=== PATIENT | female | born 1990 | race Caucasian/White ===

== ENCOUNTER → 2017-08-11 | Outpatient (CLI) | payer OTHER ==
[~2017-08-11] MED LIST: ALBU90OI INH; CEPH500 PO; CHOL10002 PO; CLIN300 PO; Cleocin HCl300 MG PO; EPIN.3I IM; FLUO10 PO; IBUP800 PO; NAPR550 PO; Norco 5-325 Ta1 EACH PO; OLAN5 PO; Oxycodone-Apap1 EAC3 PO; PERIDEX15 ML MM; PROZAC20 MG PO; Pyridium100 MG PO; Ultram50 MG PO; Zofran Odt4 MG SL; Zofran4 MG PO
[2017-08-11 19:26] LABS: Specimen Source CERVIX
[2017-08-12 10:02] LABS: Candida species (DNA Probe) Negative (NEGATIVE); G. vaginalis (DNA Probe) Negative (NEGATIVE); T. vaginalis (DNA Probe) Negative (NEGATIVE)
[2017-08-13 01:25] LABS: Source Cervix
== END | disposition home or self-care (01) ==
LOC: LAB EV 19:24
PROVIDERS: Physician Assistant
DX: N76.0 Acute vaginitis (principal)
CPT/HCPCS: 87480; 87491; 87510; 87591; 87660

== ENCOUNTER 2017-10-09 20:57 | Emergency (ER) | payer OTHER ==
[~2017-10-09] VITALS: Ht 172.7 cm; Wt 90.7 kg
[~2017-10-09 20:57] MED LIST changes: -CEPH500 PO; -CHOL10002 PO; -CLIN300 PO; -Cleocin HCl300 MG PO; -FLUO10 PO; -IBUP800 PO; -NAPR550 PO; -Norco 5-325 Ta1 EACH PO; -Oxycodone-Apap1 EAC3 PO; -PERIDEX15 ML MM; -Pyridium100 MG PO; -Ultram50 MG PO; -Zofran Odt4 MG SL; -Zofran4 MG PO
[2017-10-09] MEDS ORDERED: FLUO10 PO (21:04)
[2017-10-09] MEDS ORDERED: OLAN5 PO (21:04)
[2017-10-09 21:20] LABS: Source, Urine Clean Catch
[2017-10-09 21:25] LABS: BASOPHILS ABSOLUTE AUTO 0.08 K/mm3 (0.00-0.23); BASOPHILS PERCENT AUTO 1 % (0-2); EOSINOPHILS ABSOLUTE AUTO 0.41 K/mm3 (0.00-0.68); EOSINOPHILS PERCENT AUTO 4 % (0-6); Hematocrit 39.5 % (33.0-51.0); Hemoglobin 13.6 g/dL (11.5-16.0); IMMATURE GRAN PERCENT AUTO 1 % (0-1); LYMPHOCYTES ABSOLUTE AUTO 3.68 K/mm3 (0.84-5.20); LYMPHOCYTES PERCENT AUTO 31 % (21-46); MONOCYTES ABSOLUTE AUTO 0.88 K/mm3 (0.16-1.47); MONOCYTES PERCENT AUTO 8 % (4-13); Mean Corpuscular HGB 31.7 pg (26.0-34.0); Mean Corpuscular HGB Conc 34.4 g/dL (31.5-36.5); Mean Corpuscular Volume 92 fL (80-100); NEUTROPHILS ABSOLUTE AUTO 6.58 K/mm3 (1.96-9.15); NEUTROPHILS PERCENT AUTO 56 % (41-73); Platelet Count 278 K/mm3 (150-400); RDW Coefficient Variation 11.9 % (11.7-14.2); RDW Standard Deviation 40.8 fL (35.1-46.3); Red Blood Cell Count 4.29 M/mm3 (3.80-5.20); White Blood Cell Count 11.73 K/mm3 (4.00-11.30)
[2017-10-09 21:26] LABS: Appearance, Urine Hazy (Clear); Bilirubin, Urine Neg (Neg); Blood, Urine Neg (Neg); Color, Urine Yellow (P-Yellow); Glucose Qualitative, Urine Neg (Neg); Ketones, Urine Neg (Neg); Leukocyte Esterase, Urine Neg (Neg); Nitrite, Urine Neg (Neg); Protein, Urine Neg (Neg); Urobilinogen, Urine NORM (Normal)
[2017-10-09 21:32] LABS: Squamous Epithelial Cells Mod /hpf (Few)
[2017-10-09 21:33] LABS: Bacteria Mod /hpf; Red Blood Cells, Urine 0-2 /hpf (0-2)
[2017-10-09 21:43] LABS: Alanine Aminotransfer (ALT/SGP 40 U/L (12-78); Albumin, Blood 3.8 g/dL (3.4-5.0); Alk Phos 108 U/L (50-136); Anion Gap 7 mmol/L (6-16); Aspartate Aminotrans (AST/SGOT 26 U/L (12-37); Bilirubin, Total 0.3 mg/dL (0.1-1.0); Blood Urea Nitrogen 18 mg/dL (8-24); Bun/Creatinine Ratio 26.5 (12.0-20.0); CO2, Blood 25 mmol/L (21-32); Calcium, Blood 9.3 mg/dL (8.5-10.1); Chloride, Blood 108 mmol/L (98-108); Creatinine, Blood 0.68 mg/dL (0.40-1.00); Glomerular Filtration Rate >60 (60-); Glucose, Blood 105 mg/dL (70-99); Sodium, Blood 140 mmol/L (136-145); Total Protein, Blood 7.8 g/dL (6.4-8.2)
[2017-10-10] MEDS ORDERED: Zofran Odt4 MG SL (00:16)
== END 2017-10-10 00:40 | disposition home or self-care (01) ==
LOC: ER 20:57
PROVIDERS: Emergency Medicine
DX: R10.84 Generalized abdominal pain (principal); T38.5X5A Adverse effect of other estrogens and progestogens, initial encounter; J45.909 Unspecified asthma, uncomplicated; F32.9 Major depressive disorder, single episode, unspecified; F41.9 Anxiety disorder, unspecified; F17.210 Nicotine dependence, cigarettes, uncomplicated; Z91.030 Bee allergy status; Z88.0 Allergy status to penicillin; Z88.8 Allergy status to other drugs, medicaments and biological substances; Z91.040 Latex allergy status; Z88.5 Allergy status to narcotic agent; Z79.899 Other long term (current) drug therapy
CPT/HCPCS: 36415; 76705; 80053; 81001; 81025; 83690; 85025; 87086; 96374; 96375; 99284; J1885; J2405

== ENCOUNTER 2018-01-27 19:14 | Emergency (ER) | payer OTHER ==
[~2018-01-27] VITALS: Ht 167.6 cm; Wt 97.5 kg
[~2018-01-27 19:14] MED LIST changes: +CHOL10002 PO; +FLUO10 PO; +Oxycodone-Apap1 EAC3 PO; +Zofran Odt4 MG SL
[2018-01-27 19:31] LABS: Source, Urine Clean Catch
[2018-01-27 19:38] LABS: Appearance, Urine Clear (Clear); Bilirubin, Urine Neg (Neg); Blood, Urine Neg (Neg); Color, Urine Yellow (P-Yellow); Glucose Qualitative, Urine Neg (Neg); Ketones, Urine Neg (Neg); Leukocyte Esterase, Urine 1+ (Neg); Nitrite, Urine Neg (Neg); Protein, Urine Neg (Neg); Urobilinogen, Urine NORM (Normal)
[2018-01-27 19:44] LABS: Bacteria Many /hpf; Red Blood Cells, Urine 0-2 /hpf (0-2); Squamous Epithelial Cells Mod /hpf (Few)
[2018-01-27] MEDS ORDERED: Pyridium100 MG PO (20:09)
[2018-01-27] MEDS ORDERED: CEPH500 PO (20:09)
== END 2018-01-27 20:22 | disposition home or self-care (01) ==
LOC: ER 19:14
PROVIDERS: Physician Assistant
DX: N39.0 Urinary tract infection, site not specified (principal); Z91.030 Bee allergy status; Z88.0 Allergy status to penicillin; Z91.040 Latex allergy status; Z88.5 Allergy status to narcotic agent; Z79.899 Other long term (current) drug therapy; J45.909 Unspecified asthma, uncomplicated; F32.9 Major depressive disorder, single episode, unspecified; F41.9 Anxiety disorder, unspecified; F25.9 Schizoaffective disorder, unspecified; F17.210 Nicotine dependence, cigarettes, uncomplicated
CPT/HCPCS: 81001; 87086; 99283

== ENCOUNTER 2018-02-25 15:32 | Emergency (ER) | payer OTHER ==
[~2018-02-25] VITALS: Ht 167.6 cm; Wt 104.3 kg
[~2018-02-25 15:32] MED LIST changes: +CEPH500 PO; +Pyridium100 MG PO
[2018-02-25 15:55] LABS: Source, Urine Voided
[2018-02-25 16:23] LABS: BASOPHILS ABSOLUTE AUTO 0.06 K/mm3 (0.00-0.23); BASOPHILS PERCENT AUTO 1 % (0-2); EOSINOPHILS ABSOLUTE AUTO 0.41 K/mm3 (0.00-0.68); EOSINOPHILS PERCENT AUTO 4 % (0-6); Hematocrit 41.4 % (33.0-51.0); Hemoglobin 14.1 g/dL (11.5-16.0); IMMATURE GRAN ABSOLUTE AUTO 0.11 K/mm3 (0.00-0.10); IMMATURE GRAN PERCENT AUTO 1 % (0-1); LYMPHOCYTES ABSOLUTE AUTO 3.15 K/mm3 (0.84-5.20); LYMPHOCYTES PERCENT AUTO 28 % (21-46); MONOCYTES ABSOLUTE AUTO 0.74 K/mm3 (0.16-1.47); MONOCYTES PERCENT AUTO 7 % (4-13); Mean Corpuscular HGB 31.4 pg (26.0-34.0); Mean Corpuscular HGB Conc 34.1 g/dL (31.5-36.5); Mean Corpuscular Volume 92 fL (80-100); Mean Platelet Volume 10.6 fL (9.1-12.4); NEUTROPHILS PERCENT AUTO 60 % (41-73); Platelet Count 266 K/mm3 (150-400); RDW Coefficient Variation 12.6 % (11.7-14.2); RDW Standard Deviation 42.8 fL (35.1-46.3); Red Blood Cell Count 4.49 M/mm3 (3.80-5.20); White Blood Cell Count 11.27 K/mm3 (4.00-11.30)
[2018-02-25 16:25] LABS: Appearance, Urine Hazy (Clear); Bilirubin, Urine Neg (Neg); Blood, Urine 3+ (Neg); Color, Urine Yellow (P-Yellow); Glucose Qualitative, Urine Neg (Neg); Ketones, Urine Neg (Neg); Leukocyte Esterase, Urine 1+ (Neg); Nitrite, Urine Neg (Neg); Protein, Urine Neg (Neg); Urobilinogen, Urine NORM (Normal)
[2018-02-25 16:47] LABS: Alanine Aminotransfer (ALT/SGP 39 U/L (12-78); Albumin, Blood 3.8 g/dL (3.4-5.0); Albumin/Globulin Ratio 0.9 (0.8-1.8); Alk Phos 151 U/L (50-136); Anion Gap 9 mmol/L (6-16); Aspartate Aminotrans (AST/SGOT 29 U/L (12-37); Bilirubin, Total 0.2 mg/dL (0.1-1.0); Blood Urea Nitrogen 10 mg/dL (8-24); Bun/Creatinine Ratio 13.4 (12.0-20.0); CO2, Blood 23 mmol/L (21-32); Calcium, Blood 8.9 mg/dL (8.5-10.1); Chloride, Blood 106 mmol/L (98-108); Creatinine, Blood 0.74 mg/dL (0.40-1.00); Globulin, Blood 4.1 g/dL (2.2-4.0); Glomerular Filtration Rate >60 (60-); Glucose, Blood 79 mg/dL (70-99); Potassium, Blood 4.1 mmol/L (3.5-5.5); Sodium, Blood 138 mmol/L (136-145); Total Protein, Blood 7.9 g/dL (6.4-8.2)
[2018-02-25 16:47] LABS: Bacteria Many /hpf; Squamous Epithelial Cells Mod /hpf (Few)
[2018-02-25] MEDS ORDERED: NAPR550 PO (17:43)
[2018-02-25] MEDS ORDERED: Norco 5-325 Ta1 EACH PO (17:43)
[2018-02-26] MEDS ORDERED: Zofran4 MG PO (21:53)
== END 2018-02-25 17:57 | disposition home or self-care (01) ==
LOC: ER 15:32
PROVIDERS: Emergency Medicine
DX: N80.9 Endometriosis, unspecified (principal); F17.210 Nicotine dependence, cigarettes, uncomplicated
CPT/HCPCS: 36415; 76830; 76856; 80053; 81001; 81025; 83690; 85025; 87086; 96361; 96374; 96375; 99284-25; J1885; J2405; J3010; J7030

== ENCOUNTER 2018-02-26 19:06 | Emergency (ER) | payer OTHER ==
[~2018-02-26] VITALS: Ht 167.6 cm; Wt 104.3 kg
[~2018-02-26 19:06] MED LIST changes: +NAPR550 PO; +Norco 5-325 Ta1 EACH PO
[2018-02-26 20:16] LABS: BASOPHILS ABSOLUTE AUTO 0.05 K/mm3 (0.00-0.23); BASOPHILS PERCENT AUTO 0 % (0-2); EOSINOPHILS ABSOLUTE AUTO 0.32 K/mm3 (0.00-0.68); EOSINOPHILS PERCENT AUTO 3 % (0-6); Hematocrit 41.7 % (33.0-51.0); IMMATURE GRAN ABSOLUTE AUTO 0.07 K/mm3 (0.00-0.10); IMMATURE GRAN PERCENT AUTO 1 % (0-1); LYMPHOCYTES ABSOLUTE AUTO 3.13 K/mm3 (0.84-5.20); LYMPHOCYTES PERCENT AUTO 28 % (21-46); MONOCYTES ABSOLUTE AUTO 0.72 K/mm3 (0.16-1.47); MONOCYTES PERCENT AUTO 6 % (4-13); Mean Corpuscular HGB 30.6 pg (26.0-34.0); Mean Corpuscular HGB Conc 33.6 g/dL (31.5-36.5); Mean Corpuscular Volume 91 fL (80-100); Mean Platelet Volume 10.9 fL (9.1-12.4); NEUTROPHILS ABSOLUTE AUTO 6.96 K/mm3 (1.96-9.15); NEUTROPHILS PERCENT AUTO 62 % (41-73); Platelet Count 280 K/mm3 (150-400); RDW Coefficient Variation 12.5 % (11.7-14.2); RDW Standard Deviation 41.2 fL (35.1-46.3); Red Blood Cell Count 4.58 M/mm3 (3.80-5.20); White Blood Cell Count 11.25 K/mm3 (4.00-11.30)
[2018-02-26 20:39] LABS: Alanine Aminotransfer (ALT/SGP 42 U/L (12-78); Albumin, Blood 3.7 g/dL (3.4-5.0); Alk Phos 148 U/L (50-136); Anion Gap 8 mmol/L (6-16); Aspartate Aminotrans (AST/SGOT 33 U/L (12-37); Bilirubin, Total 0.2 mg/dL (0.1-1.0); Blood Urea Nitrogen 14 mg/dL (8-24); Bun/Creatinine Ratio 17.7 (12.0-20.0); CO2, Blood 23 mmol/L (21-32); Calcium, Blood 8.6 mg/dL (8.5-10.1); Chloride, Blood 109 mmol/L (98-108); Creatinine, Blood 0.79 mg/dL (0.40-1.00); Globulin, Blood 3.7 g/dL (2.2-4.0); Glomerular Filtration Rate >60 (60-); Glucose, Blood 93 mg/dL (70-99); Potassium, Blood 4.1 mmol/L (3.5-5.5); Sodium, Blood 140 mmol/L (136-145); Total Protein, Blood 7.4 g/dL (6.4-8.2)
[2018-02-26] MEDS ORDERED: Zofran4 MG PO (21:53)
== END 2018-02-26 22:10 | disposition home or self-care (01) ==
LOC: ER 19:06
PROVIDERS: Emergency Medicine
DX: N80.9 Endometriosis, unspecified (principal); J45.909 Unspecified asthma, uncomplicated; F32.9 Major depressive disorder, single episode, unspecified; F41.9 Anxiety disorder, unspecified; F20.9 Schizophrenia, unspecified; F17.210 Nicotine dependence, cigarettes, uncomplicated; Z91.030 Bee allergy status; Z88.0 Allergy status to penicillin; Z88.8 Allergy status to other drugs, medicaments and biological substances; Z91.040 Latex allergy status; Z79.899 Other long term (current) drug therapy
CPT/HCPCS: 36415; 74177; 80053; 81025; 83690; 85025; 96374; 96375; 96376; 99284-25; J2405; J3010; Q9967

== ENCOUNTER → 2018-06-24 | Outpatient (CLI) | payer OTHER ==
[~2018-06-24] MED LIST changes: +CLIN300 PO; +Cleocin HCl300 MG PO; +DOCU100 PO; +GAVILAX17 GM PO; +IBUP800 PO; +MELO7.5 PO; +PERIDEX15 ML MM; +PROM25 PO; +Percocet 5-3251 EACH PO; +SIME80CH PO; +Ultram50 MG PO; +Zofran4 MG PO
[2018-06-24 16:11] LABS: BASOPHILS ABSOLUTE AUTO 0.06 K/mm3 (0.00-0.23); BASOPHILS PERCENT AUTO 1 % (0-2); EOSINOPHILS ABSOLUTE AUTO 0.24 K/mm3 (0.00-0.68); EOSINOPHILS PERCENT AUTO 2 % (0-6); Hematocrit 41.4 % (33.0-51.0); Hemoglobin 14.3 g/dL (11.5-16.0); IMMATURE GRAN ABSOLUTE AUTO 0.08 K/mm3 (0.00-0.10); IMMATURE GRAN PERCENT AUTO 1 % (0-1); LYMPHOCYTES ABSOLUTE AUTO 2.85 K/mm3 (0.84-5.20); LYMPHOCYTES PERCENT AUTO 27 % (21-46); MONOCYTES ABSOLUTE AUTO 0.55 K/mm3 (0.16-1.47); MONOCYTES PERCENT AUTO 5 % (4-13); Mean Corpuscular HGB 30.8 pg (26.0-34.0); Mean Corpuscular HGB Conc 34.5 g/dL (31.5-36.5); Mean Corpuscular Volume 89 fL (80-100); Mean Platelet Volume 10.2 fL (9.1-12.4); NEUTROPHILS ABSOLUTE AUTO 6.81 K/mm3 (1.96-9.15); NEUTROPHILS PERCENT AUTO 64 % (41-73); Platelet Count 314 K/mm3 (150-400); RDW Coefficient Variation 12.2 % (11.7-14.2); RDW Standard Deviation 39.6 fL (35.1-46.3); Red Blood Cell Count 4.65 M/mm3 (3.80-5.20); White Blood Cell Count 10.59 K/mm3 (4.00-11.30)
[2018-06-24 16:35] LABS: Alanine Aminotransfer (ALT/SGP 32 U/L (12-78); Albumin, Blood 3.6 g/dL (3.4-5.0); Albumin/Globulin Ratio 0.9 (0.8-1.8); Alk Phos 133 U/L (40-126); Anion Gap 8 mmol/L (6-16); Aspartate Aminotrans (AST/SGOT 21 U/L (12-37); Bilirubin, Total 0.2 mg/dL (0.1-1.0); Blood Urea Nitrogen 10 mg/dL (8-24); Bun/Creatinine Ratio 12.3 (12.0-20.0); CO2, Blood 27 mmol/L (21-32); Calcium, Blood 9.2 mg/dL (8.5-10.1); Chloride, Blood 104 mmol/L (98-108); Creatinine, Blood 0.81 mg/dL (0.40-1.00); Globulin, Blood 4.2 g/dL (2.2-4.0); Glomerular Filtration Rate >60 (60-); Glucose, Blood 113 mg/dL (70-99); Potassium, Blood 3.7 mmol/L (3.5-5.5); Sodium, Blood 139 mmol/L (136-145); Total Protein, Blood 7.8 g/dL (6.4-8.2)
== END | disposition home or self-care (01) ==
LOC: LAB EV 16:08 → LAB SHORT 16:08
PROVIDERS: Physician Assistant
DX: R10.9 Unspecified abdominal pain (principal)
CPT/HCPCS: 80053; 83690; 85025

== ENCOUNTER 2018-06-30 05:36 | Inpatient (IN) | payer OTHER ==
[2018-06-28 12:45] LABS: Hematocrit 41.3 % (33.0-51.0); Hemoglobin 13.8 g/dL (11.5-16.0); Mean Corpuscular HGB 30.1 pg (26.0-34.0); Mean Corpuscular HGB Conc 33.4 g/dL (31.5-36.5); Mean Corpuscular Volume 90 fL (80-100); Mean Platelet Volume 10.5 fL (9.1-12.4); Platelet Count 307 K/mm3 (150-400); RDW Coefficient Variation 12.2 % (11.7-14.2); Red Blood Cell Count 4.58 M/mm3 (3.80-5.20); White Blood Cell Count 10.98 K/mm3 (4.00-11.30)
[~2018-06-30] VITALS: Ht 167.6 cm; Wt 115.7 kg
[~2018-06-30 05:36] MED LIST changes: -DOCU100 PO; -GAVILAX17 GM PO; -MELO7.5 PO; -PROM25 PO; -Percocet 5-3251 EACH PO; -SIME80CH PO
[2018-06-30] MEDS ORDERED: MELO7.5 PO (06:30)
--- NOTE | 2018-06-30 07:00 | NUR ---
Ambulatory in Day Surgery History, Chart, Medications and Allergies reviewed before start of procedure.Patient confirms NPO status and agrees with scheduled surgery. PT DID HAVE BLACK ONLY COFFEE REPORTED AT 130AM Patient reports completing Chlorhexadine shower X2 prior to admission to hospital.Surgical site prepped with 2% Chlorhexidine cloth wipe.
--- NOTE | 2018-06-30 08:38 | NUR ---
06/30/18 0838 Gianni Damian UNABLE TO PROCEED LAPROSCOPICALLY, OPEN AT 0830
--- NOTE | 2018-06-30 13:15 | NUR ---
PT ARRIVED TO ROOM FROM PACU ON OWN BED, POST OP VS COMMENCED AND STABLE. PT WITH SLIGHT NAUSEA, NO VOMITING.
--- NOTE | 2018-06-30 17:02 | NUR ---
shift summary: post op vss and complete. pt slightly tachy at 100's-110's, asymptomatic. pt states she is having pain at 7-8/10 despite MEDICAL PHYSICS PROFESSOR and PO analagesia. have medicated per mar, will reassess and call provider if pain does not recede below 5/10. bowen catheter patent and draining dark yellow urine. laparasopic sites intake, dried red blood. prevena dressing c/d/i over transverse pelvic incision.
[2018-07-01 04:09] LABS: BASOPHILS ABSOLUTE AUTO 0.03 K/mm3 (0.00-0.23); BASOPHILS PERCENT AUTO 0 % (0-2); EOSINOPHILS PERCENT AUTO 0 % (0-6); Hematocrit 36.4 % (33.0-51.0); IMMATURE GRAN ABSOLUTE AUTO 0.13 K/mm3 (0.00-0.10); IMMATURE GRAN PERCENT AUTO 1 % (0-1); LYMPHOCYTES PERCENT AUTO 11 % (21-46); MONOCYTES ABSOLUTE AUTO 0.73 K/mm3 (0.16-1.47); MONOCYTES PERCENT AUTO 4 % (4-13); Mean Corpuscular HGB 30.5 pg (26.0-34.0); Mean Platelet Volume 10.4 fL (9.1-12.4); NEUTROPHILS ABSOLUTE AUTO 14.68 K/mm3 (1.96-9.15); NEUTROPHILS PERCENT AUTO 84 % (41-73); Platelet Count 307 K/mm3 (150-400); RDW Coefficient Variation 12.5 % (11.7-14.2); RDW Standard Deviation 42.9 fL (35.1-46.3); Red Blood Cell Count 3.93 M/mm3 (3.80-5.20); White Blood Cell Count 17.47 K/mm3 (4.00-11.30)
[2018-07-01 04:14] LABS: Mean Corpuscular Volume 93 fL (80-100)
--- NOTE | 2018-07-01 06:19 | NUR ---
SUMMARY: PT IS POD1 FOR OPEN HYSTER. NO ACUTE CHANGE OVERNIGHT. VSS, SCANT BLEED VAGINALY. SURGICAL SITES WNL, GOOD SEAL ON WOUND VAC. PT USING FENTANYAL ENGAGEMENT DIRECTOR AND MEDICATED WITH NARCO AND TORADOL. PT DIDN'T SLEEP VERY WELL, KEPT WAKING UP TO IV BEEPING. PT ABLE TO AMBULATE IN [place] AND TO BATHROOM. ABIDA CALDWELL'D AT 0520. HAS VOIDED. NO ACUTE CONCERNS AT THIS TIME. WILL REPORT TO DAY RN.
--- NOTE | 2018-07-01 17:03 | NUR ---
SHIFT SUMMARY PT A&OX4, VSS, POD#1 ARACELIS-RO, 3 STERIS CDI, 1 TRANSVERSE W/ PREVENA, ABD SOFT NONDISTENDED, ABD BINDER ON. PAIN MANAGED WITH 10 MG PERC. DOROTA REG ADULT DIET, DENIES N&V. REP PASSING SM AMT FLATUS. VOIDING WELL. SHOWERED TODAY. WILL CTM & TX PER EMAR UNTIL REPORT GIVEN TO ONCOMING ADRIEN PRETTY.
--- NOTE | 2018-07-01 18:18 | NUR ---
PT LEFT FLOOR TO GO OUTSIDE TO VAPE
--- NOTE | 2018-07-02 06:06 | NUR ---
SHIFT SUMMARY PT A&O X4 T/O SHIFT. POD#2 ARACELIS, PREVENA VAC OVER PELVIC TRANSVERSE SITE CDI, NO DRAINANGE, SEAL INTACT. STERI-STRIPS TO ABD LAP SITES CDI. ABD SOFT, SLIGHT DISTENTION, BT INREASING OVER SHIFT. PT REPORTS SEVERAL EPISODES OF FLATUS. PT OFF UNIT SEVERAL TIMES. INDEPENDENT IN ROOM. PAIN MANAGED PER EMAR. NAUSEA X1 AT START OF SHIFT; MEDICATED PER EMAR. REG DIET, TOLERATING WELL AT THIS TIME. RA; DENIES SOB AND CP. K-PAD IN REACH. CALL LIGHT IN REACH; PT DEMONSTRATES USE. WCTM UNTIL REPORT TO DAY SHIFT RN.
--- NOTE | 2018-07-02 08:57 | NUR ---
PT OUTSIDE FREQUENTLY TO USE VAPOR PEN. PT STATES SHE IS JUST USING TABACCO. AMBULATES HALLWAYS WITHOUT DIFFICULTY. WILL ASSESS WHEN PT RETURNS TO ROOM.
[2018-07-02] MEDS ORDERED: Percocet 5-3251 EACH PO (12:32)
[2018-07-02] MEDS ORDERED: IBUP800 PO (12:32)
[2018-07-02] MEDS ORDERED: PROM25 PO (12:33)
[2018-07-02] MEDS ORDERED: DOCU100 PO (12:35)
[2018-07-02] MEDS ORDERED: GAVILAX17 GM PO (12:35)
[2018-07-02] MEDS ORDERED: SIME80CH PO (12:36)
--- NOTE | 2018-07-02 12:43 | NUR ---
DISCHARGE: DC TO HOME AT THIS TIME WITH SPOUSE. IV DC'D WNL. VERBAL UNDERSTANDING OF INSTRUCTIONS, FOLLOW UP, MEDICATIONS AND PROBLEMS TO REPORT. PT LEFT AMBULATORY TO CAR WITH BELONGINGS.
== END 2018-07-02 12:45 | disposition home or self-care (01) | DRG 742 ==
LOC: ORSCMMR 05:36 → ORD 09:30 → SURS 11:13 → ORSCMMR 11:13 → SURS 12:30
PROVIDERS: ADMIT Obstetrics & Gynecology
PROC: 0UT90ZZ Resection of Uterus, Open Approach (ICD-10-PCS; principal; 2018-06-30 07:30)
PROC: 0UT00ZZ Resection of Right Ovary, Open Approach (ICD-10-PCS; 2018-06-30 07:30)
DX: N80.9 Endometriosis, unspecified (principal); Z68.41 Body mass index [BMI] 40.0-44.9, adult; N92.1 Excessive and frequent menstruation with irregular cycle; R10.2 Pelvic and perineal pain; Z87.891 Personal history of nicotine dependence; F31.9 Bipolar disorder, unspecified; E66.01 Morbid (severe) obesity due to excess calories; Z88.5 Allergy status to narcotic agent; Z88.0 Allergy status to penicillin; Z88.8 Allergy status to other drugs, medicaments and biological substances; Z91.040 Latex allergy status
CPT/HCPCS: 36415; 84703; 85025; 85027; 86850; 86900; 86901; 88307; 90686; J0690; J1100; J1200; J1885; J2250; J2370; J2405; J2550; J2710; J3010; J7030; J7120

== ENCOUNTER → 2018-08-15 | Outpatient (CLI) | payer OTHER ==
[~2018-08-15] MED LIST changes: +DOCU100 PO; +GAVILAX17 GM PO; +MELO7.5 PO; +PROM25 PO; +Percocet 5-3251 EACH PO; +SIME80CH PO
[2018-08-15 15:21] LABS: BASOPHILS ABSOLUTE AUTO 0.03 K/mm3 (0.00-0.23); BASOPHILS PERCENT AUTO 0 % (0-2); EOSINOPHILS ABSOLUTE AUTO 0.24 K/mm3 (0.00-0.68); EOSINOPHILS PERCENT AUTO 2 % (0-6); Hematocrit 42.8 % (33.0-51.0); Hemoglobin 14.5 g/dL (11.5-16.0); IMMATURE GRAN ABSOLUTE AUTO 0.05 K/mm3 (0.00-0.10); IMMATURE GRAN PERCENT AUTO 0 % (0-1); LYMPHOCYTES ABSOLUTE AUTO 3.28 K/mm3 (0.84-5.20); LYMPHOCYTES PERCENT AUTO 26 % (21-46); MONOCYTES ABSOLUTE AUTO 0.54 K/mm3 (0.16-1.47); MONOCYTES PERCENT AUTO 4 % (4-13); Mean Corpuscular HGB 29.9 pg (26.0-34.0); Mean Corpuscular HGB Conc 33.9 g/dL (31.5-36.5); Mean Corpuscular Volume 88 fL (80-100); Mean Platelet Volume 10.5 fL (9.1-12.4); NEUTROPHILS ABSOLUTE AUTO 8.28 K/mm3 (1.96-9.15); NEUTROPHILS PERCENT AUTO 67 % (41-73); Platelet Count 318 K/mm3 (150-400); RDW Standard Deviation 41.6 fL (35.1-46.3); Red Blood Cell Count 4.85 M/mm3 (3.80-5.20); White Blood Cell Count 12.42 K/mm3 (4.00-11.30)
[2018-08-15 15:34] LABS: Alanine Aminotransfer (ALT/SGP 23 U/L (12-78); Albumin, Blood 4.1 g/dL (3.4-5.0); Alk Phos 126 U/L (40-126); Anion Gap 10 mmol/L (6-16); Aspartate Aminotrans (AST/SGOT 16 U/L (12-37); Bilirubin, Total 0.3 mg/dL (0.1-1.0); Blood Urea Nitrogen 8 mg/dL (8-24); Bun/Creatinine Ratio 9.2 (12.0-20.0); CO2, Blood 28 mmol/L (21-32); Calcium, Blood 8.9 mg/dL (8.5-10.1); Chloride, Blood 99 mmol/L (98-108); Creatinine, Blood 0.87 mg/dL (0.40-1.00); Globulin, Blood 4.2 g/dL (2.2-4.0); Glomerular Filtration Rate >60 (60-); Glucose, Blood 94 mg/dL (70-99); Potassium, Blood 3.7 mmol/L (3.5-5.5); Sodium, Blood 137 mmol/L (136-145); Total Protein, Blood 8.3 g/dL (6.4-8.2)
== END | disposition home or self-care (01) ==
LOC: LAB SHORT 15:18 → LAB EV 15:18
PROVIDERS: Physician Assistant
DX: R10.84 Generalized abdominal pain (principal)
CPT/HCPCS: 80053; 83690; 85025

== ENCOUNTER 2018-08-21 21:24 | Emergency (ER) | payer OTHER | END 2018-08-21 23:18 | disposition left against medical advice (07) | LOC: ER 21:24 | DX: Z53.21 Procedure and treatment not carried out due to patient leaving prior to being seen by health care provider (principal) ==

== ENCOUNTER 2018-09-05 16:00 | Emergency (ER) | payer OTHER ==
[~2018-09-05] VITALS: Ht 167.6 cm; Wt 113.4 kg
[2018-09-05] MEDS ORDERED: Golytely Solu4000 ML PO (17:25)
== END 2018-09-05 17:50 | disposition home or self-care (01) ==
LOC: ER 16:00
DX: K59.00 Constipation, unspecified (principal); J45.909 Unspecified asthma, uncomplicated; Z91.030 Bee allergy status; Z88.8 Allergy status to other drugs, medicaments and biological substances; Z88.0 Allergy status to penicillin; Z88.5 Allergy status to narcotic agent; Z91.040 Latex allergy status; Z79.899 Other long term (current) drug therapy; F32.9 Major depressive disorder, single episode, unspecified; F41.9 Anxiety disorder, unspecified; F25.9 Schizoaffective disorder, unspecified; Z87.891 Personal history of nicotine dependence
CPT/HCPCS: 74018; 99283-25

== ENCOUNTER 2018-12-08 10:14 | Day surgery (SDC) | payer OTHER ==
[~2018-12-08] VITALS: Ht 170.2 cm; Wt 106.5 kg
[~2018-12-08 10:14] MED LIST changes: +Golytely Solu4000 ML PO; +Mobic15 MG PO; +Prozac20 MG PO; +VITAMIN D32000 UNIT PO
[2018-12-08] MEDS ORDERED: SERT50 PO (11:05)
== END 2018-12-08 14:38 | disposition home or self-care (01) ==
LOC: ORSCSDS 10:14
PROVIDERS: Obstetrics & Gynecology
PROC: 0UT14ZZ Resection of Left Ovary, Percutaneous Endoscopic Approach (ICD-10-PCS; principal; 2018-12-08 12:00)
PROC: 0UT64ZZ Resection of Left Fallopian Tube, Percutaneous Endoscopic Approach (ICD-10-PCS; principal; 2018-12-08 12:00)
DX: N80.9 Endometriosis, unspecified (principal); Q50.5 Embryonic cyst of broad ligament; N83.12 Corpus luteum cyst of left ovary; K66.0 Peritoneal adhesions (postprocedural) (postinfection); J45.909 Unspecified asthma, uncomplicated; F32.9 Major depressive disorder, single episode, unspecified; E66.01 Morbid (severe) obesity due to excess calories; Z68.36 Body mass index [BMI] 36.0-36.9, adult; Z79.899 Other long term (current) drug therapy
CPT/HCPCS: 88305; J0690; J1100; J1885; J2250; J2405; J2550; J2704; J2710; J3010; J7120

== ENCOUNTER 2019-01-02 19:14 | Emergency (ER) | payer OTHER ==
[~2019-01-02] VITALS: Ht 167.6 cm; Wt 104.3 kg
[~2019-01-02 19:14] MED LIST changes: +SERT50 PO
== END 2019-01-02 21:44 | disposition home or self-care (01) ==
LOC: ER 19:14
DX: R51 Headache (principal); Z91.030 Bee allergy status; Z88.8 Allergy status to other drugs, medicaments and biological substances; Z91.040 Latex allergy status; Z88.5 Allergy status to narcotic agent; Z79.899 Other long term (current) drug therapy; F32.9 Major depressive disorder, single episode, unspecified; F41.9 Anxiety disorder, unspecified; F25.9 Schizoaffective disorder, unspecified; F17.210 Nicotine dependence, cigarettes, uncomplicated
CPT/HCPCS: 96374; 96375; 99283-25; J1100; J1200; J2765

== ENCOUNTER 2019-02-18 10:15 | Emergency (ER) | payer OTHER ==
[~2019-02-18] VITALS: Ht 167.6 cm; Wt 104.0 kg
[2019-02-18 10:46] LABS: Source, Urine Clean Catch
[2019-02-18 10:52] LABS: Bilirubin, Urine Neg (Neg); Blood, Urine Neg (Neg); Glucose Qualitative, Urine Neg (Neg); Ketones, Urine 1+ (Neg); Leukocyte Esterase, Urine 1+ (Neg); Nitrite, Urine Neg (Neg); Protein, Urine 2+ (Neg); Specific Gravity, Urine 1.015 (1.003-1.022); Urobilinogen, Urine 1+ (Normal)
[2019-02-18 11:02] LABS: Appearance, Urine Cloudy (Clear); Color, Urine Yellow (P-Yellow)
[2019-02-18 11:03] LABS: Bacteria Many /hpf; Red Blood Cells, Urine 0-2 /hpf (0-2); Squamous Epithelial Cells Mod /hpf (Few); White Blood Cells, Urine 0-2 /hpf (0-5)
== END 2019-02-18 10:47 | disposition left against medical advice (07) ==
LOC: ER 10:15
PROVIDERS: Emergency Medicine
DX: Z53.21 Procedure and treatment not carried out due to patient leaving prior to being seen by health care provider (principal)
CPT/HCPCS: 81001; 87086

== ENCOUNTER 2019-05-06 12:20 | Emergency (ER) | payer OTHER ==
[~2019-05-06] VITALS: Ht 167.6 cm; Wt 99.8 kg
[2019-05-06] MEDS ORDERED: ALBU90OI INH (12:46)
[2019-05-06] MEDS ORDERED: Zithromax250 MG PO (12:46)
[2019-05-06] MEDS ORDERED: Sudogest60 MG PO (12:46)
== END 2019-05-06 12:52 | disposition home or self-care (01) ==
LOC: ER 12:20
DX: J45.909 Unspecified asthma, uncomplicated (principal); F32.9 Major depressive disorder, single episode, unspecified; F25.9 Schizoaffective disorder, unspecified; F17.210 Nicotine dependence, cigarettes, uncomplicated; Z91.030 Bee allergy status; Z88.0 Allergy status to penicillin; Z91.040 Latex allergy status; Z88.5 Allergy status to narcotic agent; Z88.2 Allergy status to sulfonamides; Z88.1 Allergy status to other antibiotic agents; Z79.899 Other long term (current) drug therapy
CPT/HCPCS: 99283

== ENCOUNTER 2019-05-08 18:31 | Emergency (ER) | payer OTHER ==
[~2019-05-08] VITALS: Ht 167.6 cm; Wt 99.8 kg
[~2019-05-08 18:31] MED LIST changes: +Sudogest60 MG PO; +Zithromax250 MG PO
[2019-05-08 18:52] LABS: Source, Urine Clean Catch
[2019-05-08 18:55] LABS: Appearance, Urine Clear (Clear); Bilirubin, Urine Neg (Neg); Blood, Urine Neg (Neg); Color, Urine Yellow (P-Yellow); Glucose Qualitative, Urine Neg (Neg); Ketones, Urine Neg (Neg); Leukocyte Esterase, Urine Neg (Neg); Nitrite, Urine Neg (Neg); Protein, Urine Neg (Neg); Urobilinogen, Urine NORM (Normal)
[2019-05-08 19:13] LABS: BASOPHILS ABSOLUTE AUTO 0.06 K/mm3 (0.00-0.23); BASOPHILS PERCENT AUTO 0 % (0-2); EOSINOPHILS ABSOLUTE AUTO 0.21 K/mm3 (0.00-0.68); EOSINOPHILS PERCENT AUTO 2 % (0-6); Hematocrit 44.3 % (33.0-51.0); Hemoglobin 15.2 g/dL (11.5-16.0); IMMATURE GRAN ABSOLUTE AUTO 0.06 K/mm3 (0.00-0.10); IMMATURE GRAN PERCENT AUTO 0 % (0-1); LYMPHOCYTES ABSOLUTE AUTO 4.23 K/mm3 (0.84-5.20); LYMPHOCYTES PERCENT AUTO 30 % (21-46); MONOCYTES ABSOLUTE AUTO 0.56 K/mm3 (0.16-1.47); MONOCYTES PERCENT AUTO 4 % (4-13); Mean Corpuscular HGB 31.3 pg (26.0-34.0); Mean Corpuscular HGB Conc 34.3 g/dL (31.5-36.5); Mean Corpuscular Volume 91 fL (80-100); Mean Platelet Volume 10.9 fL (9.1-12.4); NEUTROPHILS ABSOLUTE AUTO 8.83 K/mm3 (1.96-9.15); NEUTROPHILS PERCENT AUTO 63 % (41-73); Platelet Count 328 K/mm3 (150-400); RDW Coefficient Variation 12.5 % (11.7-14.2); RDW Standard Deviation 42.1 fL (35.1-46.3); Red Blood Cell Count 4.86 M/mm3 (3.80-5.20); White Blood Cell Count 13.95 K/mm3 (4.00-11.30)
[2019-05-08 19:22] LABS: Alanine Aminotransfer (ALT/SGP 57 U/L (12-78); Albumin, Blood 4.2 g/dL (3.4-5.0); Alk Phos 137 U/L (50-136); Anion Gap 6 mmol/L (6-16); Aspartate Aminotrans (AST/SGOT 47 U/L (12-37); Bilirubin, Total 0.3 mg/dL (0.1-1.0); Blood Urea Nitrogen 11 mg/dL (8-24); Bun/Creatinine Ratio 15.4 (12.0-20.0); CO2, Blood 27 mmol/L (21-32); Calcium, Blood 9.6 mg/dL (8.5-10.1); Chloride, Blood 107 mmol/L (98-108); Creatinine, Blood 0.72 mg/dL (0.40-1.00); Globulin, Blood 4.3 g/dL (2.2-4.0); Glomerular Filtration Rate >60 (60-); Glucose, Blood 85 mg/dL (70-99); Potassium, Blood 4.1 mmol/L (3.5-5.5); Sodium, Blood 140 mmol/L (136-145); Total Protein, Blood 8.5 g/dL (6.4-8.2)
[2019-05-08] MEDS ORDERED: HYDR1TAB94 PO (21:18)
[2019-05-08] MEDS ORDERED: PROM25 PO (21:18)
== END 2019-05-08 21:40 | disposition home or self-care (01) ==
LOC: ER 18:31
PROVIDERS: Emergency Medicine
DX: R10.11 Right upper quadrant pain (principal); R11.2 Nausea with vomiting, unspecified; J45.909 Unspecified asthma, uncomplicated; F32.9 Major depressive disorder, single episode, unspecified; F41.9 Anxiety disorder, unspecified; F25.9 Schizoaffective disorder, unspecified; F17.210 Nicotine dependence, cigarettes, uncomplicated; Z91.030 Bee allergy status; Z88.8 Allergy status to other drugs, medicaments and biological substances; Z88.0 Allergy status to penicillin; Z91.040 Latex allergy status; Z88.5 Allergy status to narcotic agent; Z88.2 Allergy status to sulfonamides; Z79.899 Other long term (current) drug therapy
CPT/HCPCS: 36415; 76705; 80053; 81003; 83690; 85025; 96361; 96374; 96375; 99284-25; A9270; A9270-GY; J1170; J1885; J2405; J7120

== ENCOUNTER 2019-06-05 20:40 | Emergency (ER) | payer OTHER ==
[~2019-06-05] VITALS: Ht 167.6 cm; Wt 222.0 kg
[~2019-06-05 20:40] MED LIST changes: +HYDR1TAB94 PO
== END 2019-06-05 22:25 | disposition home or self-care (01) ==
LOC: ER 20:40
DX: F43.21 Adjustment disorder with depressed mood (principal); J45.909 Unspecified asthma, uncomplicated; G43.909 Migraine, unspecified, not intractable, without status migrainosus; F17.210 Nicotine dependence, cigarettes, uncomplicated; F25.9 Schizoaffective disorder, unspecified; F41.8 Other specified anxiety disorders; Z88.0 Allergy status to penicillin; Z88.5 Allergy status to narcotic agent; Z88.2 Allergy status to sulfonamides; Z91.040 Latex allergy status; Z91.030 Bee allergy status; Z79.899 Other long term (current) drug therapy
CPT/HCPCS: 99283

== ENCOUNTER 2019-08-18 18:42 | Emergency (ER) | payer OTHER ==
[~2019-08-18] VITALS: Ht 172.7 cm; Wt 99.8 kg
== END 2019-08-18 20:10 | disposition home or self-care (01) ==
LOC: ER 18:42
DX: F31.9 Bipolar disorder, unspecified (principal); F43.21 Adjustment disorder with depressed mood; J45.909 Unspecified asthma, uncomplicated; F41.9 Anxiety disorder, unspecified; F25.9 Schizoaffective disorder, unspecified; F17.210 Nicotine dependence, cigarettes, uncomplicated
CPT/HCPCS: 96372; 99283-25; J1200; J1630; J2060

== ENCOUNTER 2019-10-04 14:48 | Inpatient (IN) | payer OTHER ==
[~2019-10-04] VITALS: Ht 162.6 cm; Wt 110.0 kg
[2019-10-04 15:10] LABS: Hematocrit 40.5 % (33.0-51.0); Hemoglobin 14.4 g/dL (11.5-16.0); Mean Corpuscular HGB Conc 35.6 g/dL (31.5-36.5); Mean Corpuscular Volume 87 fL (80-100); Mean Platelet Volume 10.9 fL (9.1-12.4); NRBC ABSOLUTE 0.17 K/mm3 (0.00-0.02); NRBC Auto 0.6 /100 WBC (0.0-0.2); Platelet Count 365 K/mm3 (150-400); RDW Coefficient Variation 13.3 % (11.7-14.2); RDW Standard Deviation 42.2 fL (35.1-46.3); Red Blood Cell Count 4.64 M/mm3 (3.80-5.20); White Blood Cell Count 30.43 K/mm3 (4.00-11.30)
[2019-10-04] MEDS ORDERED: VENLAFAXINE H37.5 M1 PO (15:12)
[2019-10-04] MEDS ORDERED: Norethindrone Ac5 MG PO (15:12)
[2019-10-04] MEDS ORDERED: RIZATRIPTAN5 MG PO (15:12)
[2019-10-04] MEDS ORDERED: CLIMARA1 EACH (15:12)
[2019-10-04] MEDS ORDERED: ESTRADIOL2 MG PO (15:15)
[2019-10-04 15:24] LABS: PCO2 Arterial 33.6 mmHg (35-45); pH Blood Arterial 7.47 (7.35-7.45)
[2019-10-04 15:25] LABS: PO2 Arterial 39.5 mmHg (80-100)
[2019-10-04 15:32] LABS: Ethanol (Alcohol), Blood, Med <3 mg/dL; Troponin I 0.295 ng/mL (0.000-0.040)
[2019-10-04 15:33] LABS: Alanine Aminotransfer (ALT/SGP 36 U/L (12-78); Albumin, Blood 3.5 g/dL (3.4-5.0); Albumin/Globulin Ratio 0.7 (0.8-1.8); Alk Phos 157 U/L (50-136); Anion Gap 7 mmol/L (6-16); Aspartate Aminotrans (AST/SGOT 63 U/L (12-37); Bilirubin, Total 0.5 mg/dL (0.1-1.0); Blood Urea Nitrogen 36 mg/dL (8-24); Bun/Creatinine Ratio 43.7 (12.0-20.0); CO2, Blood 26 mmol/L (21-32); Calcium, Blood 9.3 mg/dL (8.5-10.1); Chloride, Blood 99 mmol/L (98-108); Creatinine, Blood 0.82 mg/dL (0.40-1.00); Globulin, Blood 5.3 g/dL (2.2-4.0); Glomerular Filtration Rate >60 (60-); Glucose, Blood 116 mg/dL (70-99); Potassium, Blood 2.5 mmol/L (3.5-5.5); Sodium, Blood 132 mmol/L (136-145); Total Protein, Blood 8.8 g/dL (6.4-8.2)
[2019-10-04 15:36] LABS: BAND PERCENT MAN 1 % (0-8); BASOPHILS PERCENT MAN 0 % (0-2); EOSINOPHILS ABSOLUTE MAN 0.91 K/mm3 (0.00-0.68); EOSINOPHILS PERCENT MAN 3 % (0-6); LYMPHOCYTES ABSOLUTE MAN 6.08 K/mm3 (0.84-5.20); LYMPHOCYTES PERCENT MAN 20 % (21-46); METAMYELOCYTE ABSOLUTE MAN 0.91 K/mm3 (0.00-0.00); METAMYELOCYTE PERCENT MAN 3 % (0-0); MONOCYTES ABSOLUTE MAN 0.91 K/mm3 (0.16-1.47); MONOCYTES PERCENT MAN 3 % (4-13); SEG NEUTROPHILS PERCENT MAN 70 % (41-73); TOTAL CELLS COUNTED 100
[2019-10-04 17:35] LABS: Source, Urine Catheter
[2019-10-04 17:41] LABS: Bilirubin, Urine Neg (Neg); Blood, Urine 2+ (Neg); Glucose Qualitative, Urine Neg (Neg); Ketones, Urine 1+ (Neg); Leukocyte Esterase, Urine Neg (Neg); Nitrite, Urine Neg (Neg); Protein, Urine 3+ (Neg); Urobilinogen, Urine NORM (Normal); pH, Urine 6.5 (5.0-8.0)
[2019-10-04 17:55] LABS: Appearance, Urine Clear (Clear); Color, Urine Yellow (P-Yellow)
[2019-10-04 17:57] LABS: Bacteria Rare /hpf; Red Blood Cells, Urine 0-2 /hpf (0-2); Squamous Epithelial Cells Rare /hpf (Few); White Blood Cells, Urine 0-2 /hpf (0-5)
[2019-10-04 18:04] LABS: U Amphetamine Screen DETECTED; U Barbituate Screen Not Detected; U Benzodiazapine Screen Not Detected; U Buprenorphine Screen Not Detected; U Cannabinoids Screen Not Detected; U Cocaine Screen Not Detected; U Methadone Screen Not Detected; U Methamphetamine Screen Not Detected; U Opiates Screen Not Detected; U Oxycodone Screen Not Detected; U Phencyclidine Screen Not Detected; U Propoxyphene Screen Not Detected
[2019-10-04 18:29] LABS: PCO2 Arterial 47.7 mmHg (35-45); PO2 Arterial 93.7 mmHg (80-100); pH Blood Arterial 7.33 (7.35-7.45)
--- NOTE | 2019-10-04 19:37 | NUR ---
PT ARRIVAL FOR ER Assumed care of pt upon arrival to ICU 13 from emergency department at 1840. Pt arrived with 7.5 cm ETT, 24 cm ATT. Pt agitated. Reaching for ETT. Not opening eyes or following commands. Pt coughing repeatedly. Pt arrived from ED with propofol at 98 mcg/kg/min with dosing weight of 68 kg. Propofol changed to 40 mcg/kg/min with dosing weight 98 kg, which is her current weight according to bed. Pt continued to cough and reach for ETT. Propofol increased as pt persisted to reach for ETT and continued severe coughing. supervisor assembly department called etcher machine to obtain more medication management for agitation. Pt arrived with bowen catheter in place. No OG tube. Pt connected to ventilator AC 14/400/10/100%. SpO2 97%. Report given to oncoming RNMarlen.
[2019-10-04 20:37] LABS: Adenovirus Not Detected (NOT DETECT); Bordetella pertussis Not Detected (NOT DETECT); Chlamydophila pneumoniae Not Detected (NOT DETECT); Coronavirus 229E Not Detected (NOT DETECT); Coronavirus HKU1 Not Detected (NOT DETECT); Coronavirus NL63 Not Detected (NOT DETECT); Coronavirus OC43 Not Detected (NOT DETECT); Human Metapneumovirus Not Detected (NOT DETECT); Human Rhinovirus/Enterovirus Not Detected (NOT DETECT); Influenza A/2009-H1 Not Detected (NOT DETECT); Influenza A/H1 Not Detected (NOT DETECT); Influenza A/H3 Not Detected (NOT DETECT); Influenza B Not Detected (NOT DETECT); Mycoplasma pneumoniae Not Detected (NOT DETECT); Parainfluenza Virus 1 Not Detected (NOT DETECT); Parainfluenza Virus 2 Not Detected (NOT DETECT); Parainfluenza Virus 3 Not Detected (NOT DETECT); Parainfluenza Virus 4 Not Detected (NOT DETECT); Respiratory Syncytial Virus Not Detected (NOT DETECT)
[2019-10-04 20:43] LABS: Creatine Kinase MB 2.7 ng/mL (0.0-3.6); Creatine Kinase MB Index 2.7 (0.0-4.0)
--- NOTE | 2019-10-04 21:35 | NUR ---
PT ADMITTED AT SHIFT CHANGE. INTUBATED AND SEDATED WITH PROPOFOL. ADDED PRECEDEX PER DR. CAPONE AND HAVE GIVEN ATIVAN. PT IS DIFFICULT TO SEDATE WITHOUT DROPPING BP. ANYTIME PT IS TOUCHED SHE STARTS COUGHING. DR. CAPONE SAW TROPONIN RESULTS WHILE HE WAS HERE TO SEE PT. FIO2 WAS TITRATED DOWN FROM 100% TO 75%. IV ABX WERE STARTED AFTER ABLE TO GET ANOTHER IV SITE. CHRISTIAN CALLED TO CHECK IN ON AND WAS ABLE TO GIVE SOME HEALTH HISTORY. HE WILL CALL BACK TOMORROW WITH MEDICATIONS AND DOSES.
--- NOTE | 2019-10-04 23:30 | NUR ---
PLACED OG TUBE AND IMMEDIATELY GOT RETURN OF GASTRIC CONTENTS. PLACED TO LIS. PT TOLERATED WELL.
--- NOTE | 2019-10-05 01:13 | NUR ---
CALLED DR. CAPONE ABOUT PERSISTENT MAP 58-59. NEW ORDERS RECEIVED FOR LR BOLUS THEN TO START LR AT 150ML/HR. IF MAP CONTINUES TO BE LOWER THAN 60 ANOTHER LR BOLUS CAN BE GIVEN. PT IS RESPONDING TO FIRST LITER SO FAR. HAVE TITRATED PROPOFOL DOWN TO TRY TO HELP WITH BP.
[2019-10-05 04:11] LABS: BASOPHILS ABSOLUTE AUTO 0.11 K/mm3 (0.00-0.23); BASOPHILS PERCENT AUTO 1 % (0-2); EOSINOPHILS ABSOLUTE AUTO 0.65 K/mm3 (0.00-0.68); EOSINOPHILS PERCENT AUTO 4 % (0-6); Hematocrit 32.8 % (33.0-51.0); Hemoglobin 11.3 g/dL (11.5-16.0); IMMATURE GRAN ABSOLUTE AUTO 0.58 K/mm3 (0.00-0.10); IMMATURE GRAN PERCENT AUTO 3 % (0-1); LYMPHOCYTES ABSOLUTE AUTO 4.82 K/mm3 (0.84-5.20); LYMPHOCYTES PERCENT AUTO 27 % (21-46); MONOCYTES ABSOLUTE AUTO 0.56 K/mm3 (0.16-1.47); MONOCYTES PERCENT AUTO 3 % (4-13); Mean Corpuscular HGB 31.3 pg (26.0-34.0); Mean Corpuscular HGB Conc 34.5 g/dL (31.5-36.5); Mean Corpuscular Volume 91 fL (80-100); Mean Platelet Volume 10.7 fL (9.1-12.4); NEUTROPHILS ABSOLUTE AUTO 11.22 K/mm3 (1.96-9.15); NEUTROPHILS PERCENT AUTO 63 % (41-73); NRBC ABSOLUTE 0.09 K/mm3 (0.00-0.02); NRBC Auto 0.5 /100 WBC (0.0-0.2); Platelet Count 226 K/mm3 (150-400); RDW Coefficient Variation 13.8 % (11.7-14.2); RDW Standard Deviation 45.4 fL (35.1-46.3); Red Blood Cell Count 3.61 M/mm3 (3.80-5.20); White Blood Cell Count 17.94 K/mm3 (4.00-11.30)
[2019-10-05 04:30] LABS: Anion Gap 6 mmol/L (6-16); Blood Urea Nitrogen 25 mg/dL (8-24); Bun/Creatinine Ratio 35.5 (12.0-20.0); CO2, Blood 25 mmol/L (21-32); Calcium, Blood 8.1 mg/dL (8.5-10.1); Chloride, Blood 109 mmol/L (98-108); Glomerular Filtration Rate >60 (60-); Glucose, Blood 93 mg/dL (70-99); Sodium, Blood 140 mmol/L (136-145); Troponin I 0.324 ng/mL (0.000-0.040)
--- NOTE | 2019-10-05 06:01 | NUR ---
SUMMARY PT INTUBATED AND SEDATED WITH PROPOFOL AND PRECEDEX. HAVE BEEN TITRATING PROPOFOL DOWN DUE TO LOW BP. GAVE 3L OF LR BOLUSES DURING THIS SHIFT. SBP REMAINS 70'S-80'S WITH MAP 58-65. DR. CAPONE SAID HE WILL EVALUATE FOR CENTRAL LINE AND PRESSORS THIS AM WHEN HE COMES IN. LIFTED SEDATION THIS AM FOR SEDATION VACATION AND PT WAS ABLE TO OPEN EYE'S TO COMMAND AND SQUEEZE HANDS. PT GETS AGITATED WHEN SEDATION IS OFF AND STARTS COUGHING A LOT. CALLED DR. CAPONE THIS AM ABOUT LOW POTASSIUM AND RECEIVED NEW ORDERS FOR KCL IVPB. FIO2 IS DOWN FROM 100% TO 60%. NO OTHER CHANGES SINCE ADMIT.
--- NOTE | 2019-10-05 07:15 | NUR ---
BEGINNING OF SHIFT Assumed care of pt at 0700. Bedside report received from Marlen PRETTY. Pt sedated with 0.4 mcg/kg/hr precedex and 20 mcg/kr/min propofol. Ventilator settings AC 14/400/10/60%. SpO2 90% or greater. Pt breathing over vent with RR 24-28. Pt begins coughing with any stimulus applied. BP low, will continue to reassess. SR per monitor. Scant amounts of white sputum suctioned from ETT. Bilious drainage from OG tube connected to LIS. Grullon catheter in place draining clear yellow urine.
--- NOTE | 2019-10-05 08:59 | NUR ---
UPDATE GIVEN TO SPOUSE Spouse called unit. Questions answered to caller's satisfaction. States plan to call for update again later.
--- NOTE | 2019-10-05 10:45 | NUR ---
DR CAPONE IN TO SEE PT Plan for recheck blood work at 1600. Plan to start nutrition for pt today. Discussed pt's current sedation and BP.
--- NOTE | 2019-10-05 17:00 | NUR ---
LABS REPORTED Labs reported to Dr Shafer. New orders received. Discussed pt's current sedation and ventilator settings.
[2019-10-05 17:03] LABS: Magnesium, Blood 2.1 mg/dL (1.6-2.4); Potassium, Blood 3.5 mmol/L (3.5-5.5)
--- NOTE | 2019-10-05 19:39 | NUR ---
SUMMARY At this time, pt sedated with 45 mcg/kg/min propofol. Precedex off. Vent settings AC 14/400/10/45%. SpO2 90% or greater. Sedation interruption not done this shift. With minimal stimulus applied, begins coughing and desaturates to mid-high 70s and takes 2-[address] Shafer aware. At this time, pt is SR. BP stable. Tube feedings infusing per orders through OG tube. No BM this shift. Pt's spouse updated several times t/o shift by this RN. Report given to Marlen PRETTY.
--- NOTE | 2019-10-05 20:08 | NUR ---
PT INTUBATED AND SEDATED WITH PROPOFOL. PT IS EASILY AGITATED WITH CARE. GETS INTO COUGHING FITS AND SATS DROP INTO THE 80'S. RECOVERS ON 100% FIO2 THEN ABLE TO KEEP FIO2 AT 40% WHEN CALM. TOLERATING TUBE FEED WITH NO RESIDUALS. NO SIGN OF DISTRESS AT THE MOMENT.
[2019-10-05 20:59] LABS: Vancomycin, Trough 22.6 ug/mL (5.0-10.0)
[2019-10-06 03:23] LABS: EOSINOPHILS ABSOLUTE AUTO 0.73 K/mm3 (0.00-0.68); EOSINOPHILS PERCENT AUTO 4 % (0-6); Hematocrit 34.3 % (33.0-51.0); Hemoglobin 10.9 g/dL (11.5-16.0); IMMATURE GRAN PERCENT AUTO 6 % (0-1); LYMPHOCYTES ABSOLUTE AUTO 4.45 K/mm3 (0.84-5.20); LYMPHOCYTES PERCENT AUTO 25 % (21-46); MONOCYTES ABSOLUTE AUTO 0.66 K/mm3 (0.16-1.47); MONOCYTES PERCENT AUTO 4 % (4-13); Mean Corpuscular HGB 31.1 pg (26.0-34.0); Mean Corpuscular HGB Conc 31.8 g/dL (31.5-36.5); Mean Platelet Volume 11.1 fL (9.1-12.4); NEUTROPHILS ABSOLUTE AUTO 11.02 K/mm3 (1.96-9.15); NEUTROPHILS PERCENT AUTO 62 % (41-73); NRBC ABSOLUTE 0.07 K/mm3 (0.00-0.02); NRBC Auto 0.4 /100 WBC (0.0-0.2); Platelet Count 173 K/mm3 (150-400); RDW Coefficient Variation 14.7 % (11.7-14.2); RDW Standard Deviation 51.4 fL (35.1-46.3); Red Blood Cell Count 3.51 M/mm3 (3.80-5.20); White Blood Cell Count 17.91 K/mm3 (4.00-11.30)
[2019-10-06 03:24] LABS: BASOPHILS ABSOLUTE AUTO 0.05 K/mm3 (0.00-0.23); BASOPHILS PERCENT AUTO 0 % (0-2); Mean Corpuscular Volume 98 fL (80-100)
[2019-10-06 03:41] LABS: BAND PERCENT MAN 2 % (0-8); BASOPHILS PERCENT MAN 0 % (0-2); EOSINOPHILS ABSOLUTE MAN 0.71 K/mm3 (0.00-0.68); EOSINOPHILS PERCENT MAN 4 % (0-6); LYMPHOCYTES ABSOLUTE MAN 4.29 K/mm3 (0.84-5.20); LYMPHOCYTES PERCENT MAN 24 % (21-46); METAMYELOCYTE ABSOLUTE MAN 0.35 K/mm3 (0.00-0.00); METAMYELOCYTE PERCENT MAN 2 % (0-0); MONOCYTES ABSOLUTE MAN 0.17 K/mm3 (0.16-1.47); MONOCYTES PERCENT MAN 1 % (4-13); MYELOCYTE ABSOLUTE MAN 0.17 K/mm3 (0.00-0.00); MYELOCYTE PERCENT MAN 1 % (0-0); Magnesium, Blood 1.9 mg/dL (1.6-2.4); NEUTROPHILS ABSOLUTE MAN 12.17 K/mm3 (1.96-9.15); SEG NEUTROPHILS PERCENT MAN 66 % (41-73); TOTAL CELLS COUNTED 100
[2019-10-06 03:43] LABS: Alanine Aminotransfer (ALT/SGP 27 U/L (12-78); Albumin, Blood 2.2 g/dL (3.4-5.0); Albumin/Globulin Ratio 0.6 (0.8-1.8); Alk Phos 108 U/L (50-136); Anion Gap 6 mmol/L (6-16); Aspartate Aminotrans (AST/SGOT 41 U/L (12-37); Bilirubin, Total 0.3 mg/dL (0.1-1.0); Blood Urea Nitrogen 13 mg/dL (8-24); Bun/Creatinine Ratio 22.9 (12.0-20.0); CO2, Blood 25 mmol/L (21-32); Calcium, Blood 7.9 mg/dL (8.5-10.1); Chloride, Blood 110 mmol/L (98-108); Creatinine, Blood 0.57 mg/dL (0.40-1.00); Globulin, Blood 3.6 g/dL (2.2-4.0); Glomerular Filtration Rate >60 (60-); Glucose, Blood 81 mg/dL (70-99); Phosphorus, Blood 2.7 mg/dL (2.5-4.9); Potassium, Blood 3.2 mmol/L (3.5-5.5); Sodium, Blood 141 mmol/L (136-145); Total Protein, Blood 5.8 g/dL (6.4-8.2)
[2019-10-06 05:03] LABS: PCO2 Arterial 41.3 mmHg (35-45); PO2 Arterial 59.5 mmHg (80-100); pH Blood Arterial 7.45 (7.35-7.45)
--- NOTE | 2019-10-06 06:23 | NUR ---
SUMMARY PT INTUBATED AND SEDATED WITH PROPOFOL. DID A SHORT SEDATION VACATION THIS AM AND PT WAS ABLE TO NOD YES OR NO TO QUESTIONS APPROPRIATELY AND MOVE EXTREMITIES ON COMMAND. PT STARTS COUGHING WHEN OFF SEDATION OR WHEN STIMULATED. USING FENTANYL AT TIMES IN CONJUNCTION FOR SEDATION. PT HAD ONE EPISODE WHERE SHE STARTED COUGHING SO HARD THAT HER FACE TURNED PURPLE AND SPO2 DROPPED TO 70'S. WAS ABLE TO GET HER CALMED DOWN BY USING FENTANYL AND ATIVAN. HAD TO TURN FIO2 UP TO 55% FOR A FEW HOURS THEN WAS ABLE TO TITRATE BACK DOWN TO 40%. BP HAS BEEN STABLE ALL NIGHT. TOLERATING TUBE FEED WITH NO RESIDUALS. WAS TURNED UP TO 35ML/HR. ATTEMPTED TO GET MED LIST FROM AGAIN LAST NIGHT BUT HE WAS NOT ABLE TO PROVIDE IT. HE STATES THAT [facility] MIGHT HAVE A CURRENT LIST. NO SIGN OF DISTRESS THIS AM.
--- NOTE | 2019-10-06 08:00 | NUR ---
[place] of Care: Care assumed at 0700hr. Patient intubated and sedated with propofol gtt at 50mcg/kg/min. Responds to verbal and noxious stimuli. Patient followed a few simple commands to squeeze hands and nod head, but quickly becomes agitated/restless, thrashing in bed, and coughing vent when awake. Unable to verbally re-direct or calm patient. Prn fentanyl given with good effect noted, but patient again became agitated and restless, coughing ventilator, spO2 decreased to 80's. Prn Ativan then given, also with good effect noted. Spoke with Dr. Shafer this morning, who suggested re-starting precedex gtt, if sedation/safety continues to be an issues, will continue to monitor for now. Vent to AC-16/400/10/40%, spO2-95-98% when patient is calm. Peripheral IV's x3 patent and intact. Grullon cath patent and intact, draining clear yellow urine. KCL 40meq IV x1 ordered this morning per ICU electrolyte replacement protocal. Bilateral soft wrist restraints in place to protect lines, tubes, cords. Will continue to monitor.
--- NOTE | 2019-10-06 18:08 | NUR ---
Shift Summary: No significant changes throughout remainder of shift. Precedex gtt started at approx 1300hr and patient had continued problems with sedation, and coughing/fighting vent when awake. Precedex gtt started at 0.3mcg/kg/min and effective to keep patient calm/sedated, appeared comfortable throughout remainder of shift. VS remains stable, PEEP titrated down from 10 to 5 throughout shift, vent setting now at AC-16/400/5/40%, spO2-95-98%. Peripheral IV's remain patent and intact, infusing without difficulty. Grullon cath patent and intact, urine now green tinged and cloudy, 1L output this shift. TF goal decreased to 20ml/hr this shift per dietary, residuals max of 210ml this shift. Bilateral soft wrist restraints remain in place. Appears calm and comfortable at this time. Will continue to monitor until report to NOC shift RN.
--- NOTE | 2019-10-06 20:45 | NUR ---
PT INTUBATED AND SEDATED WITH PROPOFOL AND PRECEDEX. PT GETS AGITATED EASILY WITH CARE AND STARTS COUGHING TO THE POINT THAT HER SPO2 DROPS. RECOVERS WITH FIO2 UP TO 100% AND SUCTIONING THICK BLOODY SECRETIONS. AFTER RECOVERED ABLE TO PUT FIO2 BACK AT 40%. LS COARSE RHONCHI. WHEN PT IS WORKED UP YOU CAN HEAR THE COARSENESS WHILE STANDING AT THE BEDSIDE, EVEN WHEN THERE IS NO SECRETIONS IN THE ETT. TOLERATING TUBE FEED WITH 30ML RESIDUAL. NO SIGN OF DISTRESS AT THE MOMENT.
--- NOTE | 2019-10-06 22:58 | NUR ---
CALLED RT IN TO CHECK ETT DUE TO COARSE SOUND ON INSPIRATION AND PEAK PRESSURING EVEN AFTER SUCTIONING ETT. RT WAS ABLE TO LEVAGE ETT AND GOT SOME PLUGS OUT. COARSENESS THAT WAS HEARD EARLIER IN SHIFT IS NOW RESOLVED.
[2019-10-06 23:18] LABS: Vancomycin, Trough 11.3 ug/mL (5.0-10.0)
[2019-10-07 03:33] LABS: BASOPHILS PERCENT AUTO 1 % (0-2); EOSINOPHILS ABSOLUTE AUTO 0.45 K/mm3 (0.00-0.68); EOSINOPHILS PERCENT AUTO 3 % (0-6); Hematocrit 32.8 % (33.0-51.0); Hemoglobin 10.6 g/dL (11.5-16.0); IMMATURE GRAN ABSOLUTE AUTO 0.85 K/mm3 (0.00-0.10); IMMATURE GRAN PERCENT AUTO 6 % (0-1); LYMPHOCYTES ABSOLUTE AUTO 3.48 K/mm3 (0.84-5.20); LYMPHOCYTES PERCENT AUTO 26 % (21-46); MONOCYTES PERCENT AUTO 5 % (4-13); Mean Corpuscular HGB 30.7 pg (26.0-34.0); Mean Corpuscular HGB Conc 32.3 g/dL (31.5-36.5); Mean Platelet Volume 10.8 fL (9.1-12.4); NEUTROPHILS ABSOLUTE AUTO 7.92 K/mm3 (1.96-9.15); NEUTROPHILS PERCENT AUTO 59 % (41-73); Platelet Count 165 K/mm3 (150-400); RDW Coefficient Variation 14.9 % (11.7-14.2); RDW Standard Deviation 49.8 fL (35.1-46.3); Red Blood Cell Count 3.45 M/mm3 (3.80-5.20)
[2019-10-07 03:34] LABS: Mean Corpuscular Volume 95 fL (80-100)
[2019-10-07 03:53] LABS: BAND PERCENT MAN 6 % (0-8); BASOPHILS PERCENT MAN 0 % (0-2); EOSINOPHILS PERCENT MAN 6 % (0-6); LYMPHOCYTES ABSOLUTE MAN 2.94 K/mm3 (0.84-5.20); LYMPHOCYTES PERCENT MAN 22 % (21-46); MONOCYTES ABSOLUTE MAN 0.26 K/mm3 (0.16-1.47); MONOCYTES PERCENT MAN 2 % (4-13); NEUTROPHILS ABSOLUTE MAN 9.38 K/mm3 (1.96-9.15); SEG NEUTROPHILS PERCENT MAN 64 % (41-73); TOTAL CELLS COUNTED 100
[2019-10-07 03:54] LABS: Alanine Aminotransfer (ALT/SGP 28 U/L (12-78); Albumin, Blood 2.3 g/dL (3.4-5.0); Albumin/Globulin Ratio 0.6 (0.8-1.8); Alk Phos 126 U/L (50-136); Anion Gap 3 mmol/L (6-16); Aspartate Aminotrans (AST/SGOT 43 U/L (12-37); Bilirubin, Total 0.4 mg/dL (0.1-1.0); Blood Urea Nitrogen 9 mg/dL (8-24); Bun/Creatinine Ratio 17.5 (12.0-20.0); CO2, Blood 31 mmol/L (21-32); Chloride, Blood 110 mmol/L (98-108); Creatinine, Blood 0.51 mg/dL (0.40-1.00); Globulin, Blood 3.6 g/dL (2.2-4.0); Glomerular Filtration Rate >60 (60-); Glucose, Blood 94 mg/dL (70-99); Magnesium, Blood 1.9 mg/dL (1.6-2.4); Phosphorus, Blood 3.1 mg/dL (2.5-4.9); Potassium, Blood 3.4 mmol/L (3.5-5.5); Sodium, Blood 144 mmol/L (136-145); Total Protein, Blood 5.9 g/dL (6.4-8.2)
[2019-10-07 07:02] LABS: PCO2 Arterial 42.3 mmHg (35-45); PO2 Arterial 71.3 mmHg (80-100); pH Blood Arterial 7.48 (7.35-7.45)
--- NOTE | 2019-10-07 07:11 | NUR ---
SUMMARY PT INTUBATED AND SEDATED WITH PROPOFOL AND PRECEDEX. SEDATION VACATION AND SBT THIS AM. PT IS ABLE TO FOLLOW SIMPLE COMMANDS AND NOD HEAD YES OR NO TO QUESTIONS DURING SEDATION VACATION. DURING WEAN SHE NODDED YES TO SOB. TIDAL VOLUMES 300-450 BUT SHE WAS TACHYPNEIC. BLOODY SPUTUM HAS DECREASED THIS AM AND HAS SOME GONZALEZ COLOR TO IT. RT GOT SOME PLUGS OUT WITH LEVAGE. LS REMAIN COARSE ALL NIGHT. TOLERATING TUBE FEED. NO SIGN OF DISTRESS THIS AM.
--- NOTE | 2019-10-07 09:52 | NUR ---
[place] of Care: Care assumed at 0700hr. Patient remains intubated and sedated. Propofol gtt at 50mcg/kg/min, precedex gtt at 0.3mcg/kg/hr. Patient responds to noxious stimuli, but difficult to rouse. Propofol gtt decreased to 45mcg/kg/min. Vent mode to AC-16/400/5/40%, tolerating vent without difficulty. TF per OG tube is Vital HP at goal of 20ml/hr, no s/s of GI intolerance. Grullon cath patent and intact, draining yellow/green slightly cloudy urine. Peripheral IV's x3 patent and intact, infusing without difficulty. KCl 40 meq IV x1 ordered this morning per ICU electrolyte replacement. Bilateral soft wrist restraints remain in place to protect lines, tubes, cords. Will continue to monitor.
[2019-10-07 15:39] LABS: Vancomycin, Trough 11.3 ug/mL (5.0-10.0)
--- NOTE | 2019-10-07 18:37 | NUR ---
Shift Summary: No significant changes throughout shift. Back up respiratory rate changes this morning per Dr. Shafer, from 16 to 12. Vent now to AC-12/400/5/40%, tolerating vent without difficulty, other than x2 episodes of agitation and coughing the vent. X2 prn Ativan given with good effect. Remains on propofol and precedex gtt throughout shift, propofol gtt decreased to 45mcg/kg/min this morning. Patient mostly sleeping but able to wake and follow simple commands. TF remains at goal of 20ml/hr, no s/s of GI intolerance, max residual of 260ml. Grullon cath patent and intact, draining cloudy, green tinged urine, 1000ml output this shift. PICC line placed to ALLEN this shift, remains patent and intact, infusing without difficulty. Patient appears calm and comfortable at this time. Will continue to monitor until report to NOC shift RN.
--- NOTE | 2019-10-07 21:58 | NUR ---
PT INTUBATED AND SEDATED WITH PROPOFOL AND PRECEDEX. PT GETS EASILY AGITATED WITH ANY CARE. STARTS COUGHING AND SPO2 DROPS. PT IS ABLE TO RECOVER WITH FIO2 100% FOR 2 MINUTES THEN FIO2 BACK DOWN TO 40%. TOLERATING TUBE FEED AT GOAL OF 20ML/HR. RESIDUAL OF 70ML REFED. NO SIGN OF DISTRESS.
--- NOTE | 2019-10-07 23:51 | NUR ---
WHILE GIVING PT A BATH SHE GOT AGITATED, COUGHING, AND FACE TURNING PURPLE. PT WILL REACH TOWARD ETT. GAVE FENTANYL AND PT WAS ABLE TO CALM DOWN.
[2019-10-08 03:49] LABS: BASOPHILS ABSOLUTE AUTO 0.07 K/mm3 (0.00-0.23); BASOPHILS PERCENT AUTO 1 % (0-2); EOSINOPHILS ABSOLUTE AUTO 0.46 K/mm3 (0.00-0.68); EOSINOPHILS PERCENT AUTO 4 % (0-6); Hematocrit 33.9 % (33.0-51.0); Hemoglobin 10.8 g/dL (11.5-16.0); IMMATURE GRAN PERCENT AUTO 5 % (0-1); LYMPHOCYTES ABSOLUTE AUTO 3.16 K/mm3 (0.84-5.20); LYMPHOCYTES PERCENT AUTO 28 % (21-46); MONOCYTES ABSOLUTE AUTO 0.59 K/mm3 (0.16-1.47); MONOCYTES PERCENT AUTO 5 % (4-13); Mean Corpuscular HGB 30.9 pg (26.0-34.0); Mean Corpuscular HGB Conc 31.9 g/dL (31.5-36.5); Mean Corpuscular Volume 97 fL (80-100); Mean Platelet Volume 11.1 fL (9.1-12.4); NEUTROPHILS PERCENT AUTO 58 % (41-73); Platelet Count 173 K/mm3 (150-400); RDW Coefficient Variation 15.1 % (11.7-14.2); RDW Standard Deviation 51.1 fL (35.1-46.3); Red Blood Cell Count 3.49 M/mm3 (3.80-5.20); White Blood Cell Count 11.48 K/mm3 (4.00-11.30)
[2019-10-08 04:04] LABS: Anion Gap 4 mmol/L (6-16); Blood Urea Nitrogen 12 mg/dL (8-24); Bun/Creatinine Ratio 25.8 (12.0-20.0); CO2, Blood 32 mmol/L (21-32); Chloride, Blood 110 mmol/L (98-108); Creatinine, Blood 0.47 mg/dL (0.40-1.00); Glomerular Filtration Rate >60 (60-); Glucose, Blood 95 mg/dL (70-99); Magnesium, Blood 1.9 mg/dL (1.6-2.4); Phosphorus, Blood 3.2 mg/dL (2.5-4.9); Potassium, Blood 3.6 mmol/L (3.5-5.5); Sodium, Blood 146 mmol/L (136-145)
[2019-10-08 04:06] LABS: BAND PERCENT MAN 3 % (0-8); BASOPHILS PERCENT MAN 0 % (0-2); EOSINOPHILS ABSOLUTE MAN 0.45 K/mm3 (0.00-0.68); EOSINOPHILS PERCENT MAN 4 % (0-6); LYMPHOCYTES ABSOLUTE MAN 2.87 K/mm3 (0.84-5.20); LYMPHOCYTES PERCENT MAN 25 % (21-46); MONOCYTES PERCENT MAN 7 % (4-13); NEUTROPHILS ABSOLUTE MAN 7.34 K/mm3 (1.96-9.15); SEG NEUTROPHILS PERCENT MAN 61 % (41-73); TOTAL CELLS COUNTED 100
[2019-10-08 05:54] LABS: PO2 Arterial 58.7 mmHg (80-100)
--- NOTE | 2019-10-08 06:36 | NUR ---
SUMMARY PT INTUBATED AND SEDATED WITH PROPOFOL AND PRECEDEX. PT GETS EASILY AGITATED. SHE FAILED HER SBT THIS AM BECAUSE SHE BECAME EXTREMELY AGITATED WITH SEDATION VACATION. SHE WAS KICKING AND THRASHING IN BED AND WAS UNABLE TO REDIRECT. WHEN SHE GETS AGITATED SHE STARTS COUGHING AND HER FACE TURNS PURPLE AND SPO2 DROPS TO 80'S. HAD TO GIVE FENTANYL A COUPLE TIMES TO HELP WITH SEDATION. NO OTHER ISSUES DURING THE NIGHT.
--- NOTE | 2019-10-08 07:15 | NUR ---
BEGINNING OF SHIFT Assumed care at 0700. Report received from Marlen PRETTY. Pt in bilateral soft wrist restraints to prevent self-extubation. Pt on ventilator AC 12/400/5/35%. Lungs coarse t/o, dim in bases. Small amounts of white sputum suctioned from ETT. Sedated with 50 mcg/kg/min propofol and 0.3 mcg/kg/hr precedex. BP stable. HR 60's, sinus rhythm. 1+ edema BUE and BLE. TF per orders through OG tube. Grullon catheter in place draining green urine.
--- NOTE | 2019-10-08 08:00 | NUR ---
SPOUSE CALLED UNIT FOR UPDATE Update provided. This RN asked spouse if pt vapes. Spouse states "Yes, she vapes a lot". He states "She was smoking two bars per day and each bar is equivalent to a pack of cigarettes." This RN gave update to Dr Mckeon.
--- NOTE | 2019-10-08 09:45 | NUR ---
DR HORNER IN TO SEE PATIENT Provider states plan for pt to be diuresed today. Also states plan for propofol to be titrated down and precedex to be increased as heart rate permits. Provider states it is okay for precedex to be titrated up to 1.4 mcg/kg/hr.
--- NOTE | 2019-10-08 10:00 | NUR ---
SEDATION UPDATE Pt at 40 mcg/kg/min propofol and 0.3 mcg/kg/hr precedex. Pt restless. Not coughing. Gently pulling against restraints. This RN asked pt to open her eyes. Pt shakes head, no. This RN asks pt if she knows where she is; pt shakes head, no. Pt reoriented. Pt chief librarian branch this RNs fingers when instructed to do so.
--- NOTE | 2019-10-08 12:00 | NUR ---
UPDATE Precedex titrated up to 1.4 mcg/kg/hr as pt remains agitated. HR 55-65. Will continue to closely reassess.
--- NOTE | 2019-10-08 12:30 | NUR ---
UPDATE HR 50-55. Dr Mckeon notified. States to leave precedex at 1.4 mcg/kg/hr at this time; okay to titrate propofol up if necessary.
--- NOTE | 2019-10-08 15:15 | NUR ---
CALL PLACED TO DR HORNER Notified provider that this RN stopped precedex as HR was continuing to trend down. Provider states to start precedex at 0.4 when pt's HR is improved.
--- NOTE | 2019-10-08 18:48 | NUR ---
SUMMARY At this time, pt is sedated with 50 mcg/kg/min propofol and 0.4 mcg/kg/hr precedex. Vent settings AC 12/400/5/35%. SpO2 90% or greater. Pt tolerating vent well at this time. Occasionally pulls on restriants gently. At this time, HR 67, sinus rhythm. BP stable. Pt has had excellent urine output after receiving lasix today. No BM this shift. TF and flush infusing per orders. Will continue to closely monitor until care handoff and bedside report with oncoming RN.
--- NOTE | 2019-10-08 19:00 | NUR ---
ASSUME CARES REPORT RECIEVED FROM LIMA PRETTY. MONITOR INTACT SHOWING SINUS RHYTHM HEART RATE 60'S. REMAINS INTUBATED SEDATED AND RESTRAINED. VENT SETTINGS AC 12,TV 400, FIO2 35%, PEEP 5, RATEM 18, SPO2 95%. LUNG SOUNDS CLEAR UPPER LOBES WITH DECREASED SOUNDS IN THE BASES. REFED 120ML TF WITH ORAL CARE SX SMALL AMT WHITE THIN SECRETIONS PER ETT. ABDOMEN SOFT WITH HYPOACTIVE BOWEL SOUNDS MOM GOVEN PER OG. TAI PATENT DRAINING GREENISH [place] URINE. EXTREMITIES ELMA VATED ON PILLOWS SECONDARY TO GENERALIZED DEPENDENT EDEMA REMAINS IN SOFT BILATERAL WRIST RESTRAINTS TO PREVENT INADVERTENT REMOVAL OF LINES/TUBES. CONTINUE TO MONITOR AND REPORT CHANGE IN PATIENT CONDITION.
--- NOTE | 2019-10-08 23:05 | NUR ---
RECEVIED REPORT FROM JIE PRETTY. WILL BE ASSUMING CARE OF THIS PATIENT AT THIS TIME.
--- NOTE | 2019-10-08 23:22 | NUR ---
REPORT GIVEN TO RAFAELA SHIELDS IS ASSUMING CARE . NO ACUTE CHANGE IN CONDITION SINCE ASSESSMENT
--- NOTE | 2019-10-09 00:24 | NUR ---
UPDATE: TUBE FEEDING PAUSED DUE TO HIGH RESIDUAL VOLUME (400ML). REINSTILLED AND WILL REASSESS @ 0200
--- NOTE | 2019-10-09 02:40 | NUR ---
UPDATE: AT 0215, TUBE FEEDING RESIDUALS WERE CHECKED. THERE WERE 300MLS, AFTER SPEAKING WITH CHARGE NURSE ABDIEL. DECISION WAS MADE REINSTILL ALL 300MLS. TUBE FEEDING ON PAUSE. WILL REASSESS IN TWO HOURS (0400).
[2019-10-09 04:33] LABS: BASOPHILS ABSOLUTE AUTO 0.07 K/mm3 (0.00-0.23); BASOPHILS PERCENT AUTO 1 % (0-2); EOSINOPHILS ABSOLUTE AUTO 0.37 K/mm3 (0.00-0.68); EOSINOPHILS PERCENT AUTO 4 % (0-6); Hematocrit 35.4 % (33.0-51.0); Hemoglobin 11.4 g/dL (11.5-16.0); IMMATURE GRAN ABSOLUTE AUTO 0.55 K/mm3 (0.00-0.10); IMMATURE GRAN PERCENT AUTO 5 % (0-1); LYMPHOCYTES ABSOLUTE AUTO 2.85 K/mm3 (0.84-5.20); LYMPHOCYTES PERCENT AUTO 28 % (21-46); MONOCYTES ABSOLUTE AUTO 0.56 K/mm3 (0.16-1.47); MONOCYTES PERCENT AUTO 6 % (4-13); Mean Corpuscular HGB 30.7 pg (26.0-34.0); Mean Corpuscular HGB Conc 32.2 g/dL (31.5-36.5); Mean Corpuscular Volume 95 fL (80-100); Mean Platelet Volume 11.2 fL (9.1-12.4); NEUTROPHILS ABSOLUTE AUTO 5.84 K/mm3 (1.96-9.15); NEUTROPHILS PERCENT AUTO 57 % (41-73); Platelet Count 180 K/mm3 (150-400); RDW Coefficient Variation 14.5 % (11.7-14.2); RDW Standard Deviation 49.7 fL (35.1-46.3); Red Blood Cell Count 3.71 M/mm3 (3.80-5.20); White Blood Cell Count 10.24 K/mm3 (4.00-11.30)
[2019-10-09 04:48] LABS: Anion Gap 6 mmol/L (6-16); Blood Urea Nitrogen 12 mg/dL (8-24); Bun/Creatinine Ratio 22.9 (12.0-20.0); CO2, Blood 34 mmol/L (21-32); Calcium, Blood 8.5 mg/dL (8.5-10.1); Chloride, Blood 105 mmol/L (98-108); Creatinine, Blood 0.52 mg/dL (0.40-1.00); Glomerular Filtration Rate >60 (60-); Glucose, Blood 93 mg/dL (70-99); Potassium, Blood 3.3 mmol/L (3.5-5.5); Sodium, Blood 145 mmol/L (136-145)
[2019-10-09 04:52] LABS: BAND PERCENT MAN 1 % (0-8); BASOPHILS PERCENT MAN 0 % (0-2); EOSINOPHILS PERCENT MAN 2 % (0-6); LYMPHOCYTES ABSOLUTE MAN 2.56 K/mm3 (0.84-5.20); LYMPHOCYTES PERCENT MAN 25 % (21-46); METAMYELOCYTE PERCENT MAN 2 % (0-0); MONOCYTES PERCENT MAN 2 % (4-13); NEUTROPHILS ABSOLUTE MAN 7.06 K/mm3 (1.96-9.15); SEG NEUTROPHILS PERCENT MAN 68 % (41-73); TOTAL CELLS COUNTED 100
--- NOTE | 2019-10-09 06:17 | NUR ---
SEDATION VACATION/SHIFT SUMMARY: PT WAS PLACED ON SEDATION VACATION, AT 0430, PROPOFOL WAS GRADUALLY PLACED ON SB, AND PRECEDEX CONTINUED TO INFUSE AT 0.4MCG/KG/HR. PT WAS ABLE TO FOLLOW COMMANDS AND ANSWER YES/NO QUESTIONS USING BODY LANGUAGE. AFTER 20MINUTES PT STARTED TO BECOME AGITATED AND RR WERE IN THE 50'S, AND B/P WAS INCREASING. PT WAS THEN PLACED BACK ON PROPOFOL AND ATIVAN WAS GIVEN. PT'S VENT SETTINGS ARE AC12/400/5/35%, SPO2 @ 92%, PT HAS BEEN PRODUCING WHITE FROTHY SPUTUM. PT IS DIM IN THE LOWER BASES. PT PROPOFOL IS @ 50MCG/KG/MIN, WITH NO CHANGES TO THE PRECEDEX. PT HAS REQUIRED ATIVAN ALMOST EVERY 2 HOURS. PT HAD A BOWEL MOVEMENT, LIQUID DARK BROWN. PT TUBE FEEDING WAS PAUSED THIS SHIFT FOR A TOTAL OF 4HOURS, SEE PREVIOUS NOTES. PT TUBE FEEDING IS RUNNING @ GOAL 20ML/HR, WITH 300ML FLUSHES. TAI PATNET AND DRAINING GREEN/YELLOW URINE. PT HAS BEEN REPOSITIONED Q2H. BILAT SWR IN PLACE. WILL CONTINUE TO MONITOR PT UNTIL REPORT IS GIVEN TO ONCOMING SHIFT.
--- NOTE | 2019-10-09 07:30 | NUR ---
Received report from Vasu PRETTY. mPatient laying supine in bed with HOB at 20 degrees. She is intubated with 7.5 ET and is 25 cm at teeth. Her vent settings are AC 12, TV 400, FiO2 35% and PEEP 5.0 with sats 94%. She arouses to painful stimuli. She has PICC line ALLEN dressing uintact and site WNL's and is infusing Propofol 50 mcg/kg/min, NS TKO, Precedex 0.4 mcg/kg/hr, NS TKO. She has 14Fr Grullon draining to gravity light grn/yel urine. Cintron is bilateral soft wrist restraints for line and tube protection. She has been SB in the 50 and systolic 130's. Possible extubation today.
--- NOTE | 2019-10-09 09:30 | NUR ---
Dr Swain by and assessed patient, she was slightly agitated and we increased Precedex to 0.6 mcg/kg/hr and he also placed on spon. and PS 10 FiO2 35% , re-evaluated ET and is at 23 cm instead of 25. Suctioned several times and some frothy white secretions. Propofol remains at 50 mcg/kg/min.
--- NOTE | 2019-10-09 12:27 | NUR ---
Patient extubated at 1115. She was placed on 6L O2 via NC and sats low 90%'s.She continues to have liquid stool #3. She remains in restraints to protect lines and tubes. She is still confused and will re-evaluate restraints in an hour. Placed on bed millard last time and had small liquid dark brown stool. Precedex was placed at 0.3 mcg/kg/hr and justn increased to 5 mcg/kg hr. She is currently very emotional. Dr Swain talked with prior to extubation.
--- NOTE | 2019-10-09 14:00 | NUR ---
She continues deepali have liquid dark brown stools. She is clearing with mendation and is appropriate with requests. Mike keeps pulling off NC and has to be redirect to leave on. She has several times pulled sat monitor off and been replaced . She talked with on phone briefly. Precedex at 0.3 mcg/kg/hr. VSS, ST 100-110.
--- NOTE | 2019-10-09 14:01 | NUR ---
Review of pt with staff. pt extubated will follow up with plan of care.
--- NOTE | 2019-10-09 17:39 | NUR ---
she has aked to be placed on bed millard appropriatly and last time two assist to bedside cammod and had about 500ml's of liquid dark brown stool. Precedex has been off since 1600 and tolerating well. She has had several sips and needs to be directed to swallow and then breath and does fine, but have restricted her to ice chips and doing better. She is currently at 1 L O2 via NC and sats 93%. She is currently on phone with again. She has all linen changes again and is on white sheets. Grullon still draining to gravity and could be taken out in am.
--- NOTE | 2019-10-09 20:09 | NUR ---
PATIENT AWAKE SPEAKING IN SOFT VOICE, SPONTANEOUS AND IMPULSIVE. SLIGHTLY CONFUSED REGARDING DATE REORIENT EASILY. GENERAL WEAKNESS, UP TO BSC POOR COORDINATION, AND UNSTEADY ON HER FEET 2 PERSON ASSIST TO CLEAN UP AFTER HAVING LIQUID BROWN BM. MAINTAINING OXYGEN SAT 93% ON 1L/NC, DOWN TO 88-89% ON RA. HRR SINUS RHYTHM. DOCTOR RAVI IN TO SEE PATIENT GIVEN UPDATE, NO NEW ORDERS AT THIS TIME.
--- NOTE | 2019-10-09 21:31 | NUR ---
PATIENT HAVING FREQUENT ABD CRAMPING AND PASSING LIQUID BROWN STOOL TWICE. UP TO BSC AND ON BED JON. ATIVAN GIVEN TO HELP PATIENT RELAX, ZOFRAN GIVEN FOR C/O NAUSEA AND COOL CLOTH PLACED TO NECK AND FOREHEAD DUE TO TEMP 101.3.
--- NOTE | 2019-10-09 22:45 | NUR ---
PATIENT C/O FEELING ANXIOUS AND AFRAID, PATIENT REQUESTING SOMETHING TO SLEEP. ATIVAN GIVEN
[2019-10-10 03:36] LABS: BASOPHILS ABSOLUTE AUTO 0.05 K/mm3 (0.00-0.23); BASOPHILS PERCENT AUTO 0 % (0-2); EOSINOPHILS ABSOLUTE AUTO 0.18 K/mm3 (0.00-0.68); EOSINOPHILS PERCENT AUTO 2 % (0-6); Hematocrit 34.1 % (33.0-51.0); Hemoglobin 11.1 g/dL (11.5-16.0); IMMATURE GRAN ABSOLUTE AUTO 0.34 K/mm3 (0.00-0.10); IMMATURE GRAN PERCENT AUTO 3 % (0-1); LYMPHOCYTES PERCENT AUTO 26 % (21-46); MONOCYTES ABSOLUTE AUTO 0.77 K/mm3 (0.16-1.47); MONOCYTES PERCENT AUTO 7 % (4-13); Mean Corpuscular HGB Conc 32.6 g/dL (31.5-36.5); Mean Corpuscular Volume 95 fL (80-100); Mean Platelet Volume 10.6 fL (9.1-12.4); NEUTROPHILS ABSOLUTE AUTO 7.19 K/mm3 (1.96-9.15); NEUTROPHILS PERCENT AUTO 62 % (41-73); Platelet Count 176 K/mm3 (150-400); RDW Standard Deviation 48.8 fL (35.1-46.3); Red Blood Cell Count 3.58 M/mm3 (3.80-5.20); White Blood Cell Count 11.53 K/mm3 (4.00-11.30)
[2019-10-10 03:50] LABS: Anion Gap 4 mmol/L (6-16); Blood Urea Nitrogen 9 mg/dL (8-24); Bun/Creatinine Ratio 16.3 (12.0-20.0); CO2, Blood 32 mmol/L (21-32); Calcium, Blood 8.2 mg/dL (8.5-10.1); Chloride, Blood 107 mmol/L (98-108); Creatinine, Blood 0.55 mg/dL (0.40-1.00); Glomerular Filtration Rate >60 (60-); Glucose, Blood 87 mg/dL (70-99); Potassium, Blood 3.1 mmol/L (3.5-5.5); Sodium, Blood 143 mmol/L (136-145)
--- NOTE | 2019-10-10 05:58 | NUR ---
SUMMARY PATIENT SPEAKING CLEARER, AND APPEARS MORE RELAXED WITH ATIVAN GIVEN FOR ANXIETY. REPOSITIONING SELF IN BED T/O NIGHT FOR COMFORT. CONTINUES TO NEED 2L/NC TO KEEP BIOX >90% OCCASIONAL COUGH WITH WHITE/CLEAR SPUTUM. PATIENT DOROTA WATER AND PUDDING WITHOUT DIFFICULTY. BED ALARM CONTINUES DUE TO PATIENT BEING IMPULSIVE AT TIMES. PATIENT HAD SEVERAL LIQUID BROWN STOOLS DURING THE NIGHT.
--- NOTE | 2019-10-10 08:45 | NUR ---
BEDSIDE REPORT TAKEN AT 0700. PT SLEEPING, AROUSES TO VOICE. PT FOUND TO BE INCONTINENT OF LIQUID BROWN STOOL, PT HAD STOOL ON HANDS AND WAS UNAWARE THAT SHE WAS SOILED. PT CLEANED, ATTENDS PLACED. PT FLUSHED, TEMP 99.7. PT C/O HEADACHE 5/10; TYLENOL GIVEN FOR CARDONA AND TEMP. PT HAS CRACKLES TO RML, RLL, AND LLL. PT C/O PLEURISY PAIN W DEEP BREATH. PT ENCOURAGED TO DEEP BREATH AND COUGH. I.S. AND FLUTTER VALVE PLACED AT BEDSIDE. PT EDEMATOUS T/O. PLAN PULM TOILET, OOB TO CHAIR, PT/OT, ADVANCE DIET.
--- NOTE | 2019-10-10 09:51 | NUR ---
PT SBA TO TOILET, VERY UNSTEADY GAIT. PT HAD DIARRHEA. PT UP TO CHAIR. I.S. AND FLUTTER VALVE GIVEN WITH INSTRUCTION. BOTH NEED TO BE REINFORCED PT HAD DIFFICULTY FOLLOWING DIRECTIONS AND RETAINING INFO. RT NOTIFIED. O2 INCREASED TO 3L, PT OCCASSIONALLY TAKES O2 OFF; SATS DROP INTO MID 80% ON RA AND LIPS BECOME CYANOTIC. DR CAPONE IN UNIT AND GIVEN FULL UPDATE.
--- NOTE | 2019-10-10 10:36 | NUR ---
DIETARY AND DR CAPONE IN TO SE EPT. PT NOW MED W TELE STATUS.
--- NOTE | 2019-10-10 14:12 | NUR ---
PT OOB TO SHOWER W SHOWER CHAIR. PT MORE AWAKE/ALERT. REMAINS INPULSIVE. OT AT BEDSIDE TO WORK W PT.
--- NOTE | 2019-10-10 14:40 | NUR ---
DR CAPONE NOTIFIED OF PT'S FREQUENT LIQUID STOOLS. C-DIFF ORDERED. ABIDA CALDWELL'D W/O ISSUES PRIOR TO SHOWER.
--- NOTE | 2019-10-10 17:07 | NUR ---
PATIENT ARRIVED ON MEDICAL FLOOR AT 16:30 VIA WHEELCHAIR.
--- NOTE | 2019-10-10 17:08 | NUR ---
PATIENT IS ALERT AND ORIENTED AND COOPERATIVE WITH CARE. SHE IS ON 3L O2 VIA NC. NO COMPLAINTS OF PAIN. 2PA WITH GAIT BELT AND FWW. FLUTTER VALVE AND INCENTIVE SPIROMETER ON BEDSIDE TABLE. WILL CONTINUE TO MONITOR.
[2019-10-11 04:33] LABS: BASOPHILS ABSOLUTE AUTO 0.07 K/mm3 (0.00-0.23); BASOPHILS PERCENT AUTO 1 % (0-2); EOSINOPHILS ABSOLUTE AUTO 0.26 K/mm3 (0.00-0.68); EOSINOPHILS PERCENT AUTO 2 % (0-6); Hematocrit 38.4 % (33.0-51.0); Hemoglobin 12.1 g/dL (11.5-16.0); IMMATURE GRAN ABSOLUTE AUTO 0.21 K/mm3 (0.00-0.10); IMMATURE GRAN PERCENT AUTO 2 % (0-1); LYMPHOCYTES ABSOLUTE AUTO 2.94 K/mm3 (0.84-5.20); LYMPHOCYTES PERCENT AUTO 26 % (21-46); MONOCYTES PERCENT AUTO 7 % (4-13); Mean Corpuscular HGB 30.1 pg (26.0-34.0); Mean Corpuscular HGB Conc 31.5 g/dL (31.5-36.5); Mean Corpuscular Volume 96 fL (80-100); Mean Platelet Volume 10.9 fL (9.1-12.4); NEUTROPHILS ABSOLUTE AUTO 6.89 K/mm3 (1.96-9.15); NEUTROPHILS PERCENT AUTO 62 % (41-73); Platelet Count 209 K/mm3 (150-400); RDW Coefficient Variation 13.6 % (11.7-14.2); RDW Standard Deviation 47.1 fL (35.1-46.3); Red Blood Cell Count 4.02 M/mm3 (3.80-5.20); White Blood Cell Count 11.17 K/mm3 (4.00-11.30)
[2019-10-11 04:52] LABS: Anion Gap 2 mmol/L (6-16); Blood Urea Nitrogen 9 mg/dL (8-24); Bun/Creatinine Ratio 15.5 (12.0-20.0); CO2, Blood 33 mmol/L (21-32); Calcium, Blood 8.4 mg/dL (8.5-10.1); Chloride, Blood 108 mmol/L (98-108); Creatinine, Blood 0.58 mg/dL (0.40-1.00); Glomerular Filtration Rate >60 (60-); Glucose, Blood 101 mg/dL (70-99); Potassium, Blood 3.5 mmol/L (3.5-5.5); Sodium, Blood 143 mmol/L (136-145)
--- NOTE | 2019-10-11 05:53 | NUR ---
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 patient awake most of night watching tv. complaint of minor headache around 0300 which resolved with tylenol. Nauseated after taking liquid colace. this resolved with soda crackers. Patients affect appeared to be very flat, then very labile with the staff. After a brief nap, September was pleasant and cooperative. She is most excited about when she is going to be able to go home. Her gait is still quite weak, and she has some serious proprioception issues when ambulating to bathroom with FWW and stafff
== END 2019-10-11 13:40 | disposition home health service (06) | DRG 870 ==
LOC: ER 14:48 → ICUW 18:32 → MEDS 10-10 16:47
PROVIDERS: Emergency Medicine; Internal Medicine Critical Care Medicine; Pharmacist; ADMIT Internal Medicine
PROC: 0BH17EZ Insertion of Endotracheal Airway into Trachea, Via Natural or Artificial Opening (ICD-10-PCS; principal; 2019-10-04)
PROC: 5A1955Z Respiratory Ventilation, Greater than 96 Consecutive Hours (ICD-10-PCS; 2019-10-04)
PROC: 5A09357 Assistance with Respiratory Ventilation, Less than 24 Consecutive Hours, Continuous Positive Airway Pressure (ICD-10-PCS; 2019-10-04)
PROC: 02HV33Z Insertion of Infusion Device into Superior Vena Cava, Percutaneous Approach (ICD-10-PCS; 2019-10-07)
PROC: B548ZZA Ultrasonography of Superior Vena Cava, Guidance (ICD-10-PCS; 2019-10-07)
DX: A41.9 Sepsis, unspecified organism (principal); J96.01 Acute respiratory failure with hypoxia; J18.9 Pneumonia, unspecified organism; E87.1 Hypo-osmolality and hyponatremia; E87.6 Hypokalemia; F19.10 Other psychoactive substance abuse, uncomplicated; F32.9 Major depressive disorder, single episode, unspecified; F41.9 Anxiety disorder, unspecified; F17.200 Nicotine dependence, unspecified, uncomplicated; Z88.0 Allergy status to penicillin; Z88.2 Allergy status to sulfonamides; Z91.040 Latex allergy status; Z78.1 Physical restraint status
CPT/HCPCS: 0099U; 31500; 31720; 36415; 36569; 36600; 51702; 71045; 71046; 71260; 80048; 80053; 80202; 81001; 81025; 82330; 82550; 82553; 82803; 82947; 83605; 83735; 84100; 84132; 84145; 84146; 84484; 85025; 85379; 87040; 87070; 87205; 87493; 93005; 93010; 94002; 94003; 94640; 94660; 96361; 96365-59; 96375; 97116; 97161; 97166; 97530; 97535; 99285-25; A9270; C1751; C9113; G0480; J0696; J1650; J1940; J2060; J2310; J2405; J2543; J2704; J3010; J3370; J3480; J7030; J7050; J7060; J7120; Q9967; U0002

== ENCOUNTER 2020-02-27 20:03 | Emergency (ER) | payer OTHER ==
[~2020-02-27] VITALS: Ht 167.6 cm; Wt 90.7 kg
[~2020-02-27 20:03] MED LIST changes: +AMIT10 PO; +CLIMARA1 EACH; +ESTRADIOL2 MG PO; +FLUTICASONE-SA1 EA11 INH; +LATUDA40 MG PO; +Norethindrone Ac5 MG PO; +RIZATRIPTAN5 MG PO; +VENL150ER PO; +VENLAFAXINE H37.5 M1 PO; +ZOLOFT50 MG PO
== END 2020-02-27 23:13 | disposition left against medical advice (07) ==
LOC: ER 20:03
DX: R06.02 Shortness of breath (principal); R05 Cough
CPT/HCPCS: 71046; 99283-25

== ENCOUNTER 2020-03-22 02:29 | Emergency (ER) | payer OTHER ==
[~2020-03-22] VITALS: Ht 170.2 cm; Wt 99.8 kg
== END 2020-03-22 10:30 | disposition home or self-care (01) ==
LOC: ER 02:29
DX: F15.10 Other stimulant abuse, uncomplicated (principal); S70.11XA Contusion of right thigh, initial encounter; J45.909 Unspecified asthma, uncomplicated; F32.9 Major depressive disorder, single episode, unspecified; F41.9 Anxiety disorder, unspecified; F20.9 Schizophrenia, unspecified; F17.210 Nicotine dependence, cigarettes, uncomplicated; Z79.890 Hormone replacement therapy; Z79.899 Other long term (current) drug therapy; W22.8XXA Striking against or struck by other objects, initial encounter
CPT/HCPCS: 96374; 99283-25; J1630

== ENCOUNTER 2020-06-23 16:00 | Emergency (ER) | payer OTHER ==
[~2020-06-23] VITALS: Ht 167.6 cm; Wt 81.7 kg
[2020-06-23] MEDS ORDERED: Inderal40 MG PO (16:07)
[2020-06-23] MEDS ORDERED: LATUDA60 M1 PO (16:07)
== END 2020-06-23 18:01 | disposition home or self-care (01) ==
LOC: ER 16:00
DX: H81.399 Other peripheral vertigo, unspecified ear (principal); F15.10 Other stimulant abuse, uncomplicated; F17.210 Nicotine dependence, cigarettes, uncomplicated; Z79.3 Long term (current) use of hormonal contraceptives; Z79.899 Other long term (current) drug therapy
CPT/HCPCS: 93005; 93010; 96361; 96374; 99284-25; A9270; J2405; J7030

== ENCOUNTER 2020-07-21 18:48 | Emergency (ER) | payer OTHER ==
[~2020-07-21] VITALS: Ht 167.6 cm; Wt 83.9 kg
[~2020-07-21 18:48] MED LIST changes: +Inderal40 MG PO; +LATUDA60 M1 PO
== END 2020-07-21 20:47 | disposition left against medical advice (07) ==
LOC: ER 18:48
DX: R07.9 Chest pain, unspecified (principal); R06.02 Shortness of breath; Z53.21 Procedure and treatment not carried out due to patient leaving prior to being seen by health care provider
CPT/HCPCS: 99283

== ENCOUNTER → 2020-10-05 | Outpatient (CLI) | payer OTHER ==
[2020-10-05 17:58] LABS: BASOPHILS ABSOLUTE AUTO 0.04 K/mm3 (0.00-0.23); BASOPHILS PERCENT AUTO 0 % (0-2); EOSINOPHILS ABSOLUTE AUTO 0.43 K/mm3 (0.00-0.68); EOSINOPHILS PERCENT AUTO 4 % (0-6); Hematocrit 42.7 % (33.0-51.0); Hemoglobin 13.9 g/dL (11.5-16.0); IMMATURE GRAN ABSOLUTE AUTO 0.04 K/mm3 (0.00-0.10); IMMATURE GRAN PERCENT AUTO 0 % (0-1); LYMPHOCYTES ABSOLUTE AUTO 3.96 K/mm3 (0.84-5.20); LYMPHOCYTES PERCENT AUTO 39 % (21-46); MONOCYTES ABSOLUTE AUTO 0.58 K/mm3 (0.16-1.47); MONOCYTES PERCENT AUTO 6 % (4-13); Mean Corpuscular HGB 30.9 pg (26.0-34.0); Mean Corpuscular HGB Conc 32.6 g/dL (31.5-36.5); Mean Corpuscular Volume 95 fL (80-100); Mean Platelet Volume 10.8 fL (9.1-12.4); NEUTROPHILS PERCENT AUTO 50 % (41-73); Platelet Count 294 K/mm3 (150-400); White Blood Cell Count 10.05 K/mm3 (4.00-11.30)
[2020-10-05 18:08] LABS: Alanine Aminotransfer (ALT/SGP 32 U/L (12-78); Albumin, Blood 3.7 g/dL (3.4-5.0); Albumin/Globulin Ratio 0.9 (0.8-1.8); Alk Phos 71 U/L (50-136); Anion Gap 4 mmol/L (6-16); Aspartate Aminotrans (AST/SGOT 16 U/L (12-37); Bilirubin, Total 0.1 mg/dL (0.1-1.0); Blood Urea Nitrogen 13 mg/dL (8-24); Bun/Creatinine Ratio 19.4 (12.0-20.0); CO2, Blood 29 mmol/L (21-32); Calcium, Blood 9.7 mg/dL (8.5-10.1); Chloride, Blood 105 mmol/L (98-108); Creatinine, Blood 0.67 mg/dL (0.40-1.00); Glomerular Filtration Rate >60 (60-); Glucose, Blood 89 mg/dL (70-99); Potassium, Blood 4.2 mmol/L (3.5-5.5); Sodium, Blood 138 mmol/L (136-145); Total Protein, Blood 7.7 g/dL (6.4-8.2)
== END | disposition home or self-care (01) ==
LOC: LAB SHORT 16:40
PROVIDERS: Family Medicine
DX: K52.9 Noninfective gastroenteritis and colitis, unspecified (principal)
CPT/HCPCS: 80053; 83690; 85025

== ENCOUNTER → 2020-12-20 | Outpatient (CLI) | payer OTHER ==
[~2020-12-20] MED LIST changes: +CEFP200 PO; +NAPR500 PO; +ONDA4ODT MM
== END | disposition home or self-care (01) ==
LOC: LAB 18:00 → LAB SHORT 18:00
DX: N30.01 Acute cystitis with hematuria (principal)
CPT/HCPCS: 87077; 87086; 87186

== ENCOUNTER 2020-12-21 11:33 | Emergency (ER) | payer OTHER ==
[~2020-12-21] VITALS: Ht 167.6 cm; Wt 98.9 kg
[~2020-12-21 11:33] MED LIST changes: -CEFP200 PO; -NAPR500 PO; -ONDA4ODT MM
[2020-12-21 11:58] LABS: Source, Urine Clean Catch
[2020-12-21 12:00] LABS: Blood, Urine 2+ (Neg); Glucose Qualitative, Urine Neg (Neg); Ketones, Urine Neg (Neg); Leukocyte Esterase, Urine 1+ (Neg); Nitrite, Urine Pos (Neg); Protein, Urine 1+ (Neg); Specific Gravity, Urine 1.015 (1.003-1.022); Urobilinogen, Urine 2+ (Normal); pH, Urine 6.5 (5.0-8.0)
[2020-12-21 12:11] LABS: Bilirubin, Urine 2+ (Neg)
[2020-12-21 12:12] LABS: Appearance, Urine Clear (Clear); Color, Urine Amber (P-Yellow)
[2020-12-21 12:15] LABS: Bacteria Mod /hpf; Squamous Epithelial Cells Mod /hpf (Few)
[2020-12-21 12:45] LABS: BASOPHILS ABSOLUTE AUTO 0.05 K/mm3 (0.00-0.23); BASOPHILS PERCENT AUTO 1 % (0-2); EOSINOPHILS ABSOLUTE AUTO 0.23 K/mm3 (0.00-0.68); EOSINOPHILS PERCENT AUTO 3 % (0-6); Hemoglobin 12.9 g/dL (11.5-16.0); IMMATURE GRAN ABSOLUTE AUTO 0.06 K/mm3 (0.00-0.10); IMMATURE GRAN PERCENT AUTO 1 % (0-1); LYMPHOCYTES ABSOLUTE AUTO 2.98 K/mm3 (0.84-5.20); LYMPHOCYTES PERCENT AUTO 32 % (21-46); MONOCYTES ABSOLUTE AUTO 0.54 K/mm3 (0.16-1.47); MONOCYTES PERCENT AUTO 6 % (4-13); Mean Corpuscular HGB 30.9 pg (26.0-34.0); Mean Corpuscular HGB Conc 33.1 g/dL (31.5-36.5); Mean Corpuscular Volume 94 fL (80-100); Mean Platelet Volume 10.5 fL (9.1-12.4); NEUTROPHILS ABSOLUTE AUTO 5.36 K/mm3 (1.96-9.15); NEUTROPHILS PERCENT AUTO 58 % (41-73); Platelet Count 260 K/mm3 (150-400); RDW Standard Deviation 41.6 fL (35.1-46.3); Red Blood Cell Count 4.17 M/mm3 (3.80-5.20); White Blood Cell Count 9.22 K/mm3 (4.00-11.30)
[2020-12-21 13:08] LABS: Alanine Aminotransfer (ALT/SGP 31 U/L (12-78); Albumin, Blood 3.8 g/dL (3.4-5.0); Alk Phos 94 U/L (50-136); Anion Gap 5 mmol/L (6-16); Aspartate Aminotrans (AST/SGOT 21 U/L (12-37); Bilirubin, Total 0.1 mg/dL (0.1-1.0); Blood Urea Nitrogen 11 mg/dL (8-24); Bun/Creatinine Ratio 17.6 (12.0-20.0); CO2, Blood 28 mmol/L (21-32); Chloride, Blood 108 mmol/L (98-108); Creatinine, Blood 0.63 mg/dL (0.40-1.00); Globulin, Blood 3.8 g/dL (2.2-4.0); Glomerular Filtration Rate >60 (60-); Glucose, Blood 91 mg/dL (70-99); Sodium, Blood 141 mmol/L (136-145); Total Protein, Blood 7.6 g/dL (6.4-8.2)
[2020-12-21] MEDS ORDERED: NAPR500 PO (13:27)
[2020-12-21] MEDS ORDERED: CEFP200 PO (13:27)
[2020-12-21] MEDS ORDERED: ONDA4ODT MM (13:27)
== END 2020-12-21 15:08 | disposition home or self-care (01) ==
LOC: ER 11:33
PROVIDERS: Emergency Medicine
DX: R10.9 Unspecified abdominal pain (principal); Z53.21 Procedure and treatment not carried out due to patient leaving prior to being seen by health care provider
CPT/HCPCS: 36415; 74176; 80053; 81001; 83690; 85025; 87086; 96361; 96365; 96375; 99284-25; A9270; J0696; J1885; J2405; J3010; J7030

== ENCOUNTER 2021-01-11 10:42 | Emergency (ER) | payer OTHER ==
[~2021-01-11] VITALS: Ht 170.2 cm; Wt 95.2 kg
[~2021-01-11 10:42] MED LIST changes: +CEFP200 PO; +NAPR500 PO; +ONDA4ODT MM
== END 2021-01-11 11:30 | disposition left against medical advice (07) ==
LOC: ER 10:42
DX: F15.20 Other stimulant dependence, uncomplicated (principal); Z53.21 Procedure and treatment not carried out due to patient leaving prior to being seen by health care provider
CPT/HCPCS: 99282

== ENCOUNTER 2021-02-08 20:17 | Emergency (ER) | payer OTHER ==
[~2021-02-08] VITALS: Ht 167.6 cm; Wt 93.0 kg
== END 2021-02-08 21:31 | disposition left against medical advice (07) ==
LOC: ER 20:17
DX: R10.9 Unspecified abdominal pain (principal); R11.0 Nausea; R10.13 Epigastric pain; Z53.21 Procedure and treatment not carried out due to patient leaving prior to being seen by health care provider
CPT/HCPCS: 80053; 82248; 83690; 85025; 99282

== ENCOUNTER → 2021-02-08 | Outpatient (CLI) | payer OTHER ==
[2021-02-08 14:59] LABS: BASOPHILS ABSOLUTE AUTO 0.04 K/mm3 (0.00-0.23); BASOPHILS PERCENT AUTO 1 % (0-2); EOSINOPHILS PERCENT AUTO 2 % (0-6); Hematocrit 42.2 % (33.0-51.0); IMMATURE GRAN ABSOLUTE AUTO 0.03 K/mm3 (0.00-0.10); IMMATURE GRAN PERCENT AUTO 0 % (0-1); LYMPHOCYTES ABSOLUTE AUTO 2.68 K/mm3 (0.84-5.20); LYMPHOCYTES PERCENT AUTO 31 % (21-46); MONOCYTES ABSOLUTE AUTO 0.51 K/mm3 (0.16-1.47); MONOCYTES PERCENT AUTO 6 % (4-13); Mean Corpuscular HGB 30.6 pg (26.0-34.0); Mean Corpuscular HGB Conc 33.2 g/dL (31.5-36.5); Mean Corpuscular Volume 92 fL (80-100); Mean Platelet Volume 11.1 fL (9.1-12.4); NEUTROPHILS ABSOLUTE AUTO 5.26 K/mm3 (1.96-9.15); NEUTROPHILS PERCENT AUTO 60 % (41-73); Platelet Count 256 K/mm3 (150-400); RDW Coefficient Variation 12.3 % (11.7-14.2); RDW Standard Deviation 41.8 fL (35.1-46.3); Red Blood Cell Count 4.58 M/mm3 (3.80-5.20); White Blood Cell Count 8.72 K/mm3 (4.00-11.30)
[2021-02-08 15:05] LABS: Alanine Aminotransfer (ALT/SGP 43 U/L (12-78); Albumin, Blood 3.9 g/dL (3.4-5.0); Alk Phos 97 U/L (50-136); Anion Gap 6 mmol/L (6-16); Aspartate Aminotrans (AST/SGOT 20 U/L (12-37); Bilirubin, Direct <0.1 mg/dL (0.0-0.3); Bilirubin, Indirect Unable to Calculate mg/dL (0.1-0.7); Bilirubin, Total 0.2 mg/dL (0.1-1.0); Blood Urea Nitrogen 14 mg/dL (8-24); Bun/Creatinine Ratio 22.4 (12.0-20.0); CO2, Blood 27 mmol/L (21-32); Calcium, Blood 9.2 mg/dL (8.5-10.1); Chloride, Blood 106 mmol/L (98-108); Creatinine, Blood 0.63 mg/dL (0.40-1.00); Globulin, Blood 3.8 g/dL (2.2-4.0); Glomerular Filtration Rate >60 (60-); Glucose, Blood 109 mg/dL (70-99); Potassium, Blood 3.9 mmol/L (3.5-5.5); Sodium, Blood 139 mmol/L (136-145); Total Protein, Blood 7.7 g/dL (6.4-8.2)
== END | disposition home or self-care (01) ==
LOC: LAB SHORT 13:00 → LAB 13:00
PROVIDERS: Nurse Practitioner
DX: R10.13 Epigastric pain (principal)
CPT/HCPCS: 80053; 82248; 83690; 85025

== ENCOUNTER 2021-03-10 22:11 | Emergency (ER) | payer OTHER ==
[~2021-03-10] VITALS: Ht 167.6 cm; Wt 89.0 kg
== END 2021-03-11 00:18 | disposition left against medical advice (07) ==
LOC: ER 22:11
DX: Z53.21 Procedure and treatment not carried out due to patient leaving prior to being seen by health care provider (principal)
CPT/HCPCS: 99281

== ENCOUNTER 2021-08-09 19:11 | Observation (INO) | payer OTHER ==
[~2021-08-09] VITALS: Ht 167.6 cm; Wt 81.7 kg
[2021-08-09 19:52] LABS: BASOPHILS ABSOLUTE AUTO 0.05 K/mm3 (0.00-0.23); BASOPHILS PERCENT AUTO 1 % (0-2); EOSINOPHILS ABSOLUTE AUTO 0.25 K/mm3 (0.00-0.68); EOSINOPHILS PERCENT AUTO 3 % (0-6); Hematocrit 40.7 % (33.0-51.0); Hemoglobin 13.3 g/dL (11.5-16.0); IMMATURE GRAN ABSOLUTE AUTO 0.04 K/mm3 (0.00-0.10); IMMATURE GRAN PERCENT AUTO 0 % (0-1); LYMPHOCYTES ABSOLUTE AUTO 3.21 K/mm3 (0.84-5.20); LYMPHOCYTES PERCENT AUTO 35 % (21-46); MONOCYTES PERCENT AUTO 6 % (4-13); Mean Corpuscular HGB 30.4 pg (26.0-34.0); Mean Corpuscular HGB Conc 32.7 g/dL (31.5-36.5); Mean Corpuscular Volume 93 fL (80-100); Mean Platelet Volume 9.9 fL (9.1-12.4); NEUTROPHILS ABSOLUTE AUTO 5.05 K/mm3 (1.96-9.15); NEUTROPHILS PERCENT AUTO 56 % (41-73); Platelet Count 299 K/mm3 (150-400); RDW Coefficient Variation 12.1 % (11.7-14.2); RDW Standard Deviation 41.8 fL (35.1-46.3); Red Blood Cell Count 4.37 M/mm3 (3.80-5.20)
[2021-08-09 20:19] LABS: Alanine Aminotransfer (ALT/SGP 35 U/L (12-78); Albumin, Blood 3.6 g/dL (3.4-5.0); Alk Phos 69 U/L (50-136); Anion Gap 5 mmol/L (6-16); Aspartate Aminotrans (AST/SGOT 23 U/L (12-37); Bilirubin, Total 0.2 mg/dL (0.1-1.0); Blood Urea Nitrogen 16 mg/dL (8-24); Bun/Creatinine Ratio 31.6 (12.0-20.0); CO2, Blood 29 mmol/L (21-32); Calcium, Blood 9.1 mg/dL (8.5-10.1); Chloride, Blood 105 mmol/L (98-108); Creatinine, Blood 0.51 mg/dL (0.40-1.00); Ethanol (Alcohol), Blood, Med <3 mg/dL; Globulin, Blood 3.5 g/dL (2.2-4.0); Glomerular Filtration Rate >60 (60-); Glucose, Blood 110 mg/dL (70-99); Salicylate <1.7 mg/dL (2.8-20.0); Sodium, Blood 139 mmol/L (136-145); Thyroxine (T4) 5.3 ug/dL (4.8-13.9); Total Protein, Blood 7.1 g/dL (6.4-8.2)
[2021-08-09 20:23] LABS: Acetaminophen, Random <2.0 ug/mL (10.0-30.0)
[2021-08-09 20:57] LABS: Source, Urine Clean Catch
[2021-08-09 20:59] LABS: Bilirubin, Urine Neg (Neg); Blood, Urine Neg (Neg); Glucose Qualitative, Urine Neg (Neg); Ketones, Urine Neg (Neg); Leukocyte Esterase, Urine 1+ (Neg); Nitrite, Urine Neg (Neg); Protein, Urine Neg (Neg); Urobilinogen, Urine NORM (Normal)
[2021-08-09 21:06] LABS: Appearance, Urine Hazy (Clear); Color, Urine Pale Yellow (P-Yellow); Red Blood Cells, Urine 0-2 /hpf (0-2); Squamous Epithelial Cells Rare /hpf (Few)
[2021-08-09 21:07] LABS: Bacteria Mod /hpf
[2021-08-09 21:13] LABS: U Amphetamine Screen Not Detected; U Barbituate Screen Not Detected; U Benzodiazapine Screen Not Detected; U Buprenorphine Screen Not Detected; U Cannabinoids Screen Not Detected; U Cocaine Screen Not Detected; U Methadone Screen Not Detected; U Methamphetamine Screen Not Detected; U Opiates Screen Not Detected; U Oxycodone Screen Not Detected; U Phencyclidine Screen Not Detected; U Propoxyphene Screen Not Detected
[2021-08-10] MEDS ORDERED: CLIN300 (07:35)
== END 2021-08-10 09:06 | disposition home or self-care (01) ==
LOC: ER 19:11 → EOR 19:12
PROVIDERS: Student in an Organized Health Care Education/Training Program; ADMIT Emergency Medicine
DX: R45.1 Restlessness and agitation (principal); F22 Delusional disorders; F17.210 Nicotine dependence, cigarettes, uncomplicated; Z88.5 Allergy status to narcotic agent; Z88.0 Allergy status to penicillin; Z88.2 Allergy status to sulfonamides; Z88.8 Allergy status to other drugs, medicaments and biological substances; Z88.1 Allergy status to other antibiotic agents; Z91.030 Bee allergy status; Z91.040 Latex allergy status
CPT/HCPCS: 80053; 81001; 81025; 84436; 84443; 85025; 87086; 99285; G0378; G0480

== ENCOUNTER → 2021-10-24 | Outpatient (CLI) | payer OTHER ==
[~2021-10-24] MED LIST changes: +CLIN300
== END ==
LOC: LAB SHORT 09:45
DX: L03.115 Cellulitis of right lower limb (principal)
CPT/HCPCS: 87070; 87147; 87205

== ENCOUNTER 2021-10-31 00:46 | Emergency (ER) | payer OTHER ==
[~2021-10-31] VITALS: Ht 167.6 cm; Wt 74.8 kg
[2021-10-31] MEDS ORDERED: Mupirocin22 GM TOP (02:01)
== END 2021-10-31 02:37 | disposition home or self-care (01) ==
LOC: ER 00:46
DX: F25.9 Schizoaffective disorder, unspecified (principal); F15.10 Other stimulant abuse, uncomplicated; L03.116 Cellulitis of left lower limb; J45.909 Unspecified asthma, uncomplicated; F17.210 Nicotine dependence, cigarettes, uncomplicated
CPT/HCPCS: 99282

== ENCOUNTER 2021-11-30 07:24 | Emergency (ER) | payer OTHER ==
[~2021-11-30] VITALS: Ht 162.6 cm; Wt 63.5 kg
[~2021-11-30 07:24] MED LIST changes: +Mupirocin22 GM TOP
[2021-11-30 10:36] LABS: Creatine Kinase MB 9.1 ng/mL (0.0-3.6); Creatine Kinase MB Index 1.6 (0.0-4.0)
[2021-11-30] MEDS ORDERED: Robaxin750 MG PO (11:09)
== END 2021-11-30 11:41 | disposition home or self-care (01) ==
LOC: ER 07:24
PROVIDERS: Physician Assistant
DX: M25.552 Pain in left hip (principal); J45.909 Unspecified asthma, uncomplicated; F32.A Depression, unspecified; F17.210 Nicotine dependence, cigarettes, uncomplicated; Z88.0 Allergy status to penicillin; Z88.2 Allergy status to sulfonamides; Z88.8 Allergy status to other drugs, medicaments and biological substances; Z88.1 Allergy status to other antibiotic agents; Z91.030 Bee allergy status; Z91.040 Latex allergy status; Z79.899 Other long term (current) drug therapy
CPT/HCPCS: 73502; 82550; 82553; A9270; J1885; J3010

== ENCOUNTER 2022-06-03 20:18 | Emergency (ER) | payer OTHER ==
[~2022-06-03] VITALS: Ht 167.6 cm; Wt 90.7 kg
[~2022-06-03 20:18] MED LIST changes: +Robaxin750 MG PO
== END 2022-06-03 21:39 | disposition left against medical advice (07) ==
LOC: ER 20:18
DX: F25.9 Schizoaffective disorder, unspecified (principal); F19.10 Other psychoactive substance abuse, uncomplicated; F17.210 Nicotine dependence, cigarettes, uncomplicated; Z79.899 Other long term (current) drug therapy
CPT/HCPCS: 99284